=== PATIENT | female | born 1955 | race Caucasian/White ===

== ENCOUNTER → 2019-03-01 | Outpatient (CLI) | payer MEDICARE, OTHER ==
[~2019-03-01] MED LIST: /LOR25TA PO; ACET500C OR; ACET65TA OR; ALEV220C2 PO; ANEX75TA PO; ATARAX OR; AUGM875T28 PO; BACL10TA2 OR; BENA25TA4 PO; BENEDRYL PO; BUSP10TA2 OR; CALC600T10 PO; CALCCHW12 OR; CELE1CAP4 PO; CELE20TA OR; CIPR500T19; CIPR500T4 OR; COLA100C2 OR; COLA100C2 PO; COLA100C5 PO; CRAN500C2 PO; CYMB1CAP5; CYMB1CAP5 OR; CYMB1CAP5 PO; CYMB60CA3 PO; D 202000 PO; DARV100T; DRISDOL OR; EFFE150C2 PO; EFFE75CA2 PO; EUCECRE2 EX; EXTR500C4 PO; FLEX10TA2 PO; FLEXERIL; FLEXERIL PO; FURO20TA2; FURO40TA2 PO; HYDR-4274 PO; HYDR10EL PO; HYDR50TA70 PO; HYDR50TA8 OR; HYDROCORTISONE0.5 % EX; HYOMAX OR; HYOS0.378 OR; IBUP400T OR; K-TA10TA; KEFL500C17 PO; KEPP250T PO; KEPP500T4 PO; LASI40TA PO; LEVETIRACETAM PO; LEVO100T4 PO; LEVO25TA2 PO; LORA1TAB12 PO; LORA2TAB; LYRI75CA OR; MAGN500T5 PO; MELA10CA PO; MELATONIN PO; MELO7.5T3 PO; METHAZOLAMIDE PO; MULTCAP PO; MULTIVIT PO; MYSO50TA; MYSO50TA OR; MYSO50TA PO; NAPR500T OR; NAPR500T PO; NEUR100C OR; NEUR100C PO; NEXI1CAP3 PO; NEXI20CA OR; NEXI40CA PO; NEXI40GR PO; NORCOTAB PO; NORT10CA2 OR; NUCYNTA OR; ONDA-1 OR; OXYB5TAB4; PAME50CA PO; POTA10CA2; POTA20TA2 PO; POTA20TA4 PO; PREG50CA OR; PRIM250T8 PO; PRIM50TA4 OR; PRIMPOW10 PO; PROBCAP4 PO; PROP60TA OR; RAPAFLO OR; RAPAFLO PO; REQU1TAB16 OR; RISP4TAB33 PO; SERO1TAB3 OR; SYNT137T7 PO; THERGRAN PO; THERTAB30 PO; TIZA2TAB OR; TIZA4CAP PO; TOPI100T; TOPI50TA; TRAZ50TA2 PO; TYLE1TAB5 PO; TYLE325T5 PO; UNISOM PO; VENL150T40 PO; VICO5TAB OR; VICOBULK GT; VIT D 2000 OR; VIT D 2000 PO; VIT250TA PO; VITA400C; VITA500T OR; VITACAP31 PO; VITAD1000T PO; VITAMIN B 12 PO; VITAMIN B COMPLE1 OR; VITAMIN B2 PO; VITATAB11 PO; VITATAB54 PO; VITMTA PO; ZOLPIDEM TART OR; [UNRECOGNIZED DRUG - OTHER]; [UNRECOGNIZED DRUG - OTHER] PO; amoxicillin PO; effexor PO; melatonin PO; oxygen INH; primidone PO; rozerem PO; stool softner PO; vitamin B PO
[2019-03-01 10:05] LABS: HEMATOCRIT 36.8 % (36.0-47.0); HEMOGLOBIN 11.8 g/dl (12.0-15.5); MEAN CORPUSCULAR HEMOGLOBIN 28.6 pg (27.0-33.0); MEAN CORPUSCULAR HGB CONC 32.1 g/dl (32.0-36.5); MEAN CORPUSCULAR VOLUME 89.3 fl (80.0-96.0); PLATELET COUNT, AUTOMATED 336 10^3/uL (150-450); RED BLOOD COUNT 4.12 10^6/uL (4.00-5.40); WHITE BLOOD COUNT 6.1 10^3/uL (4.0-10.0)
[2019-03-01 10:47] LABS: HEMOGLOBIN A1c 5.6 %
[2019-03-01 10:48] LABS: ALBUMIN 3.4 GM/DL (3.2-5.2); ALT/SGPT 39 U/L (12-78); BILIRUBIN,TOTAL 0.4 MG/DL (0.2-1.0); BLOOD UREA NITROGEN 18 MG/DL (7-18); CALCIUM LEVEL 8.5 MG/DL (8.8-10.2); CARBON DIOXIDE LEVEL 33 MEQ/L (21-32); CHLORIDE LEVEL 106 MEQ/L (98-107); CHOLESTEROL LEVEL 259 MG/DL (<200); CHOLESTEROL RISK RATIO 3.083 (<5); CREATININE FOR GFR 0.71 MG/DL (0.55-1.30); GLOMERULAR FILTRATION RATE > 60.0 (>45); GLUCOSE, FASTING 86 MG/DL (70-100); HDL CHOLESTEROL 84 MG/DL (>40); LDL CHOLESTEROL 155 MG/DL (<100); NON-HDL-C 175 MG/DL; POTASSIUM SERUM 3.7 MEQ/L (3.5-5.1); SODIUM LEVEL 143 MEQ/L (136-145); TOTAL PROTEIN 6.7 GM/DL (6.4-8.2); TRIGLYCERIDES LEVEL 101 MG/DL (<150)
== END ==
LOC: M LAB 09:31
PROVIDERS: ATTEND Internal Medicine
DX: E78.5 Hyperlipidemia, unspecified (principal); E03.9 Hypothyroidism, unspecified; R73.01 Impaired fasting glucose

== ENCOUNTER → 2019-03-25 | Outpatient (CLI) | payer MEDICARE, OTHER ==
--- NOTE | 2019-03-25 09:45 | REP ---
CT LUMBAR SPINE WITHOUT CONTRAST: HISTORY: Radiculopathy. COMPARISON: 07/27/2012. There is no disc bulge or herniation at the L1-2 and L2-3 levels. The nerves exit the neural foramina without compression. A diffuse disc bulge is present at the L3-4 level. There is minimal compression of the thecal sac. The L3 nerves exit the neural foramina without compression. A diffuse disc bulge is present at the L4-5 level. There is minimal compression of the thecal sac. There is hypertrophy of the posterior articulating facets. The L4 nerves exit the neural foramina without compression. A diffuse disc bulge is present at the L5-S1 level. There is minimal compression of the thecal sac. There is hypertrophy of the posterior articulating facets. The L5 nerves exit the neural foramina without compression. The L4-5 and L5-S1 intervertebral discs are decreased in height consistent with disc degeneration. There is no subluxation. Metal pins traverse the left sacroiliac joint. IMPRESSION: Diffuse disc bulges at the L3-4 through L5-S1 levels with minimal thecal sac compression. There is no significant change compared to the previous study. Electronically Signed by Dmitry Matias MD 03/25/2019 09:54 A
== END ==
LOC: M RAD 08:57
PROVIDERS: ATTEND Nurse Practitioner Family
DX: M51.36 Other intervertebral disc degeneration, lumbar region (principal); M51.37 Other intervertebral disc degeneration, lumbosacral region; M54.16 Radiculopathy, lumbar region; Z12.31 Encounter for screening mammogram for malignant neoplasm of breast; Z80.41 Family history of malignant neoplasm of ovary; Z80.3 Family history of malignant neoplasm of breast; Z80.0 Family history of malignant neoplasm of digestive organs; Z98.890 Other specified postprocedural states

== ENCOUNTER → 2019-03-25 | Outpatient (CLI) | payer MEDICARE, OTHER ==
--- NOTE | 2019-03-25 11:06 | REPMRS ---
Patient History The patient states she has not had a clinical breast exam in over a year. Family history of ovarian cancer in mother, breast cancer in maternal aunt, breast cancer in sister, colorectal cancer in father. Bilateral breast reduction 2006 3D TOMOSYNTHESIS WAS PERFORMED. Digital Mammo Screening Bilat: March 25, 2019 - Exam #: [id number] Bilateral CC and MLO view(s) were taken. Technologist: Pauly Dye, Technologist Prior study comparison: April 10, 2016, bilateral digital mammo screening bilat performed at [facility]. April 17, 2012, bilateral digital mammo screening bilat performed at [facility]. FINDINGS: There are scattered fibroglandular densities. There has been no change in the appearance of the mammogram from the prior studies. There is a mild amount of residual fibroglandular tissue which is fairly symmetric. There is no interval development of dominant mass, architectural distortion, or clustered microcalcification suggestive of malignancy. Assessment: BI-RADS/ACR category 1 mammogram. Negative Mammogram. Recommendation Routine screening mammogram in 1 year (for women over age 40). This mammogram was interpreted with the aid of an FDA-approved computer-aided dectection system. Electronically Signed By: Dario Ward MD 03/25/19 [id number]
== END ==
LOC: M RAD 08:53
PROVIDERS: ATTEND Internal Medicine
DX: Z12.31 Encounter for screening mammogram for malignant neoplasm of breast (principal); Z80.41 Family history of malignant neoplasm of ovary; Z80.3 Family history of malignant neoplasm of breast; Z80.0 Family history of malignant neoplasm of digestive organs; Z98.890 Other specified postprocedural states

== ENCOUNTER 2022-01-29 16:07 | Inpatient (IN) | payer MEDICARE, OTHER ==
[~2022-01-29] VITALS: Ht 154.9 cm; Wt 93.2 kg
[~2022-01-29 16:07] MED LIST changes: +CYMB60CA4 PO; -LORA1TAB12 PO; +LORA1TAB4 PO
[2022-01-29] MEDS ORDERED: fentaNYL 100 MCG/2 ML INJECTION IV ONE ×2 (17:25→21:50)
[2022-01-29 17:49] LABS: BASO # 0.1 10^3/uL (0.0-0.2); BASO % 0.8 % (0.0-1.0); HEMATOCRIT 34.3 % (36.0-47.0); HEMOGLOBIN 10.8 g/dl (12.0-15.5); LYMPH # 2.8 10^3/uL (1.5-5.0); LYMPH % 30.8 % (24.0-44.0); MEAN CORPUSCULAR HEMOGLOBIN 29.2 pg (27.0-33.0); MEAN CORPUSCULAR HGB CONC 31.5 g/dl (32.0-36.5); MEAN CORPUSCULAR VOLUME 92.7 fl (80.0-96.0); MONO # 0.7 10^3/uL (0.0-0.8); MONO % 8.3 % (2.0-8.0); NEUTROPHILS # 5.4 10^3/uL (1.5-8.5); PLATELET COUNT, AUTOMATED 252 10^3/uL (150-450)
[2022-01-29 18:13] LABS: BLOOD UREA NITROGEN 16 MG/DL (7-18); CALCIUM LEVEL 8.5 MG/DL (8.8-10.2); CARBON DIOXIDE LEVEL 33 MEQ/L (21-32); CHLORIDE LEVEL 104 MEQ/L (98-107); CREATININE FOR GFR 0.75 MG/DL (0.55-1.30); GLOMERULAR FILTRATION RATE > 60.0 (>45); GLUCOSE, FASTING 110 MG/DL (70-100); SODIUM LEVEL 141 MEQ/L (136-145)
[2022-01-29 18:17] LABS: CK-MB VALUE MASS < 1.0 NG/ML (<3.6); CPK CREATINE PHOSPHOKINASE 36 U/L (26-192); MB/CK RELATIVE INDEX 2.78 (< OR =4)
[2022-01-29] MEDS: NS 1,000 ML IV SCH (23:45)
[2022-01-30] MEDS ORDERED: ALBUTEROL 90 MCG/ACT 8GM HFA INHALER INH PRN (00:30)
[2022-01-30] MEDS ORDERED: OMEP40CA5 PO (00:48)
[2022-01-30] MEDS ORDERED: CYAN100049 PO (00:48)
[2022-01-30] MEDS ORDERED: ATOR40TA75 PO (00:48)
[2022-01-30] MEDS ORDERED: TRAZ-257 PO (00:48)
[2022-01-30] MEDS ORDERED: LORA-674 PO (00:48)
[2022-01-30] MEDS ORDERED: SYNT150T PO (00:48)
[2022-01-30] MEDS ORDERED: ACET25TA12 PO (00:48)
[2022-01-30] MEDS ORDERED: HYDR50TA30 PO (00:48)
[2022-01-30] MEDS ORDERED: METH-1165 PO (00:48)
[2022-01-30] MEDS ORDERED: POTA1TAB14 PO (00:48)
[2022-01-30] MEDS ORDERED: VITMTA PO (00:48)
[2022-01-30] MEDS ORDERED: BUSP5TA PO (00:48)
[2022-01-30] MEDS ORDERED: HOME MED LIST COMPLETE! XX SCH (00:50)
[2022-01-30] MEDS: NORCO, ANEXSIA 5/325MG TABLET (HYDROcodone/ACETAMINOPHEN) PO PRN ×4 (01:29→21:06)
[2022-01-30] MEDS: NS 1,000 ML IV SCH (04:56)
[2022-01-30] MEDS: LEVOTHYROXINE 150MCG TABLET (0.15MG) PO SCH (05:21)
[2022-01-30] MEDS: FUROSEMIDE 40 MG TAB PO SCH ×2 (08:00→11:37)
[2022-01-30] MEDS: hydrOXYzine 50 MG TAB PO SCH ×3 (08:12→21:05)
[2022-01-30] MEDS: busPIRone 5 MG TAB PO SCH ×3 (08:12→21:05)
[2022-01-30] MEDS: DULoxetine 30MG CAPSULE (CYMBALTA) PO SCH ×2 (08:12→21:05)
[2022-01-30] MEDS: APIXABAN 5 MG TAB (ELIQUIS) PO SCH ×2 (08:12→21:05)
[2022-01-30] MEDS: POTASSIUM CHLORIDE 10MEQ SR TABLET PO SCH ×2 (08:12→11:37)
[2022-01-30] MEDS: CYANOCOBALAMIN 500 MCG TAB PO SCH (08:13)
[2022-01-30] MEDS: MULTIVITAMINS/MINERALS THERAP 1 TAB PO SCH (08:13)
[2022-01-30 08:37] VITALS: BP 133/72
[2022-01-30] MEDS: IPRATROPIUM HFA INHALER 12.9 GRAMS (ATROVENT HFA) INH SCH ×4 (08:47→19:38)
[2022-01-30] MEDS: methocarbamoL 750 MG TAB PO SCH ×3 (08:53→21:05)
[2022-01-30 08:54] LABS: THYROID STIMULATING HORMONE 2.59 uIU/ML (0.358-3.740)
[2022-01-30] MEDS ORDERED: ENOXAPARIN 40MG/0.4ML SYRINGE (J1650 PER 10MG) SC SCH (09:00)
[2022-01-30] MEDS: PRIMIDONE 250 MG TAB PO SCH ×3 (11:38→21:05)
[2022-01-30] MEDS: MORPHINE 2 MG/ML 1ML VIAL IV PRN (11:38)
[2022-01-30 14:00] VITALS: BP 124/58
[2022-01-30] MEDS: ACETAMINOPHEN TAB 650MG DOSE (2X325MG) PO PRN (15:08)
[2022-01-30] MEDS ORDERED: LORazepam 1 MG TAB PO PRN (16:30)
[2022-01-30] MEDS: MICONAZOLE-7 VAGINAL 2% CREAM 47.7GM PV SCH (18:31)
[2022-01-30 20:00] VITALS: BP 147/67
[2022-01-30] MEDS: OMEPRAZOLE 20MG CAP PO SCH (21:05)
[2022-01-30] MEDS: traZODone 100 MG TAB PO SCH (21:05)
[2022-01-30] MEDS: LORATADINE 10 MG TAB PO SCH (21:05)
[2022-01-30] MEDS: ATORVASTATIN 20 MG TAB PO SCH (21:05)
[2022-01-31 04:00] VITALS: BP 145/63
[2022-01-31] MEDS: LEVOTHYROXINE 150MCG TABLET (0.15MG) PO SCH (04:47)
[2022-01-31] MEDS: NORCO, ANEXSIA 5/325MG TABLET (HYDROcodone/ACETAMINOPHEN) PO PRN ×3 (04:47→19:56)
[2022-01-31] MEDS: ONDANSETRON 4MG/2ML VIAL IV PRN ×2 (05:58→10:14)
[2022-01-31] MEDS: MORPHINE 2 MG/ML 1ML VIAL IV PRN ×2 (05:58→10:15)
[2022-01-31] MEDS: methocarbamoL 750 MG TAB PO SCH ×3 (07:49→19:54)
[2022-01-31] MEDS: CYANOCOBALAMIN 500 MCG TAB PO SCH (07:49)
[2022-01-31] MEDS: hydrOXYzine 50 MG TAB PO SCH ×3 (07:50→19:54)
[2022-01-31] MEDS: FUROSEMIDE 40 MG TAB PO SCH ×2 (07:50→12:10)
[2022-01-31] MEDS: MULTIVITAMINS/MINERALS THERAP 1 TAB PO SCH (07:50)
[2022-01-31] MEDS: APIXABAN 5 MG TAB (ELIQUIS) PO SCH ×2 (07:50→19:53)
[2022-01-31] MEDS: POTASSIUM CHLORIDE 10MEQ SR TABLET PO SCH ×2 (07:50→12:10)
[2022-01-31] MEDS: DULoxetine 30MG CAPSULE (CYMBALTA) PO SCH ×2 (07:50→19:55)
[2022-01-31] MEDS: PRIMIDONE 250 MG TAB PO SCH ×3 (07:51→19:53)
[2022-01-31] MEDS: busPIRone 5 MG TAB PO SCH ×3 (07:51→19:53)
[2022-01-31] MEDS: IPRATROPIUM HFA INHALER 12.9 GRAMS (ATROVENT HFA) INH SCH ×4 (08:07→19:52)
[2022-01-31] MEDS ORDERED: PREVNAR 13 VACCINE SYRINGE IM ONE (09:00)
[2022-01-31] MEDS: MIRALAX *UNIT DOSE* 17GM PACKET PO SCH (12:09)
[2022-01-31] MEDS: DOCUSATE SODIUM 100MG CAPSULE PO SCH ×2 (12:10→19:54)
[2022-01-31 14:00] VITALS: BP 133/61
[2022-01-31 19:39] VITALS: BP 110/56
[2022-01-31] MEDS: LORATADINE 10 MG TAB PO SCH (19:54)
[2022-01-31] MEDS: traZODone 100 MG TAB PO SCH (19:54)
[2022-01-31] MEDS: OMEPRAZOLE 20MG CAP PO SCH (19:54)
[2022-01-31] MEDS: MICONAZOLE-7 VAGINAL 2% CREAM 47.7GM PV SCH (19:55)
[2022-01-31] MEDS: ATORVASTATIN 20 MG TAB PO SCH (19:55)
[2022-02-01 04:00] VITALS: BP 122/60
[2022-02-01] MEDS: LEVOTHYROXINE 150MCG TABLET (0.15MG) PO SCH (05:35)
[2022-02-01 07:42] LABS: HEMATOCRIT 30.6 % (36.0-47.0); HEMOGLOBIN 9.6 g/dl (12.0-15.5); MEAN CORPUSCULAR HGB CONC 31.4 g/dl (32.0-36.5); MEAN CORPUSCULAR VOLUME 92.4 fl (80.0-96.0); PLATELET COUNT, AUTOMATED 221 10^3/uL (150-450); RED BLOOD COUNT 3.31 10^6/uL (4.00-5.40)
[2022-02-01 08:02] LABS: BLOOD UREA NITROGEN 14 MG/DL (7-18); CARBON DIOXIDE LEVEL 38 MEQ/L (21-32); CHLORIDE LEVEL 102 MEQ/L (98-107); CREATININE FOR GFR 0.58 MG/DL (0.55-1.30); GLOMERULAR FILTRATION RATE > 60.0 (>45); GLUCOSE, FASTING 101 MG/DL (70-100); MAGNESIUM LEVEL 1.9 MG/DL (1.8-2.4); POTASSIUM SERUM 3.6 MEQ/L (3.5-5.1); SODIUM LEVEL 140 MEQ/L (136-145)
[2022-02-01] MEDS: IPRATROPIUM HFA INHALER 12.9 GRAMS (ATROVENT HFA) INH SCH ×4 (08:29→19:58)
[2022-02-01] MEDS: FUROSEMIDE 40 MG TAB PO SCH ×2 (09:45→11:29)
[2022-02-01] MEDS: DOCUSATE SODIUM 100MG CAPSULE PO SCH ×2 (09:46→20:03)
[2022-02-01] MEDS: hydrOXYzine 50 MG TAB PO SCH ×3 (09:46→20:03)
[2022-02-01] MEDS: busPIRone 5 MG TAB PO SCH ×3 (09:46→20:03)
[2022-02-01] MEDS: DULoxetine 30MG CAPSULE (CYMBALTA) PO SCH ×2 (09:47→20:03)
[2022-02-01] MEDS: APIXABAN 5 MG TAB (ELIQUIS) PO SCH ×2 (09:47→20:03)
[2022-02-01] MEDS: MIRALAX *UNIT DOSE* 17GM PACKET PO SCH (09:48)
[2022-02-01] MEDS: PRIMIDONE 250 MG TAB PO SCH ×3 (09:48→20:03)
[2022-02-01] MEDS: POTASSIUM CHLORIDE 10MEQ SR TABLET PO SCH ×2 (09:48→11:29)
[2022-02-01] MEDS: methocarbamoL 750 MG TAB PO SCH ×3 (09:49→20:03)
[2022-02-01] MEDS: CYANOCOBALAMIN 500 MCG TAB PO SCH (09:49)
[2022-02-01] MEDS: MULTIVITAMINS/MINERALS THERAP 1 TAB PO SCH (09:49)
[2022-02-01] MEDS: NORCO, ANEXSIA 5/325MG TABLET (HYDROcodone/ACETAMINOPHEN) PO PRN (09:55)
[2022-02-01 10:00] VITALS: BP 114/59
[2022-02-01] MEDS: ACETAMINOPHEN TAB 650MG DOSE (2X325MG) PO PRN (15:13)
[2022-02-01] MEDS: MICONAZOLE-7 VAGINAL 2% CREAM 47.7GM PV SCH (20:03)
[2022-02-01] MEDS: traZODone 100 MG TAB PO SCH (20:03)
[2022-02-01] MEDS: ATORVASTATIN 20 MG TAB PO SCH (20:03)
[2022-02-01] MEDS: OMEPRAZOLE 20MG CAP PO SCH (20:03)
[2022-02-01] MEDS: LORATADINE 10 MG TAB PO SCH (20:03)
[2022-02-02] MEDS: LEVOTHYROXINE 150MCG TABLET (0.15MG) PO SCH (05:38)
[2022-02-02 06:00] VITALS: BP 133/61
[2022-02-02] MEDS: IPRATROPIUM HFA INHALER 12.9 GRAMS (ATROVENT HFA) INH SCH ×4 (07:52→18:25)
[2022-02-02] MEDS: CYANOCOBALAMIN 500 MCG TAB PO SCH (08:51)
[2022-02-02] MEDS: methocarbamoL 750 MG TAB PO SCH ×3 (08:51→20:43)
[2022-02-02] MEDS: hydrOXYzine 50 MG TAB PO SCH ×3 (08:51→20:42)
[2022-02-02] MEDS: DULoxetine 30MG CAPSULE (CYMBALTA) PO SCH ×2 (08:51→20:42)
[2022-02-02] MEDS: DOCUSATE SODIUM 100MG CAPSULE PO SCH ×2 (08:51→20:41)
[2022-02-02] MEDS: MULTIVITAMINS/MINERALS THERAP 1 TAB PO SCH (08:51)
[2022-02-02] MEDS: MIRALAX *UNIT DOSE* 17GM PACKET PO SCH (08:52)
[2022-02-02] MEDS: POTASSIUM CHLORIDE 10MEQ SR TABLET PO SCH ×2 (08:52→12:00)
[2022-02-02] MEDS: FUROSEMIDE 40 MG TAB PO SCH ×2 (08:52→12:00)
[2022-02-02] MEDS: busPIRone 5 MG TAB PO SCH ×3 (08:52→20:42)
[2022-02-02] MEDS: PRIMIDONE 250 MG TAB PO SCH ×3 (08:52→20:42)
[2022-02-02] MEDS: APIXABAN 5 MG TAB (ELIQUIS) PO SCH (08:52)
[2022-02-02] MEDS: NORCO, ANEXSIA 5/325MG TABLET (HYDROcodone/ACETAMINOPHEN) PO PRN (12:08)
[2022-02-02 14:00] VITALS: BP 116/53
[2022-02-02] MEDS: ATORVASTATIN 20 MG TAB PO SCH (20:41)
[2022-02-02] MEDS: OMEPRAZOLE 20MG CAP PO SCH (20:41)
[2022-02-02] MEDS: LORATADINE 10 MG TAB PO SCH (20:41)
[2022-02-02] MEDS: traZODone 100 MG TAB PO SCH (20:42)
[2022-02-02] MEDS: MICONAZOLE-7 VAGINAL 2% CREAM 47.7GM PV SCH (20:43)
[2022-02-02 22:00] VITALS: BP 135/63
[2022-02-03 04:00] VITALS: BP 135/65
[2022-02-03] MEDS: LEVOTHYROXINE 150MCG TABLET (0.15MG) PO SCH (06:11)
[2022-02-03 07:40] LABS: HEMATOCRIT 29.5 % (36.0-47.0); HEMOGLOBIN 9.5 g/dl (12.0-15.5); MEAN CORPUSCULAR HEMOGLOBIN 29.9 pg (27.0-33.0); MEAN CORPUSCULAR HGB CONC 32.2 g/dl (32.0-36.5); MEAN CORPUSCULAR VOLUME 92.8 fl (80.0-96.0); PLATELET COUNT, AUTOMATED 260 10^3/uL (150-450); RED BLOOD COUNT 3.18 10^6/uL (4.00-5.40); WHITE BLOOD COUNT 7.4 10^3/uL (4.0-10.0)
[2022-02-03 07:57] LABS: BLOOD UREA NITROGEN 14 MG/DL (7-18); CALCIUM LEVEL 8.1 MG/DL (8.8-10.2); CARBON DIOXIDE LEVEL 34 MEQ/L (21-32); CHLORIDE LEVEL 104 MEQ/L (98-107); CREATININE FOR GFR 0.52 MG/DL (0.55-1.30); GLOMERULAR FILTRATION RATE > 60.0 (>45); GLUCOSE, FASTING 99 MG/DL (70-100); MAGNESIUM LEVEL 2.1 MG/DL (1.8-2.4); POTASSIUM SERUM 3.3 MEQ/L (3.5-5.1); SODIUM LEVEL 144 MEQ/L (136-145)
[2022-02-03] MEDS: methocarbamoL 750 MG TAB PO SCH ×3 (08:04→21:01)
[2022-02-03] MEDS: MIRALAX *UNIT DOSE* 17GM PACKET PO SCH (08:04)
[2022-02-03] MEDS: POTASSIUM CHLORIDE 10MEQ SR TABLET PO SCH ×2 (08:05→12:46)
[2022-02-03] MEDS: busPIRone 5 MG TAB PO SCH ×3 (08:05→21:01)
[2022-02-03] MEDS: MULTIVITAMINS/MINERALS THERAP 1 TAB PO SCH (08:05)
[2022-02-03] MEDS: DOCUSATE SODIUM 100MG CAPSULE PO SCH ×2 (08:05→21:01)
[2022-02-03] MEDS: DULoxetine 30MG CAPSULE (CYMBALTA) PO SCH ×2 (08:05→21:01)
[2022-02-03] MEDS: CYANOCOBALAMIN 500 MCG TAB PO SCH (08:05)
[2022-02-03] MEDS: FUROSEMIDE 40 MG TAB PO SCH ×2 (08:05→12:46)
[2022-02-03] MEDS: PRIMIDONE 250 MG TAB PO SCH ×3 (08:05→21:01)
[2022-02-03] MEDS: hydrOXYzine 50 MG TAB PO SCH ×3 (08:06→21:01)
[2022-02-03] MEDS: IPRATROPIUM HFA INHALER 12.9 GRAMS (ATROVENT HFA) INH SCH ×4 (08:07→19:06)
[2022-02-03] MEDS ORDERED: POTASSIUM CHLORIDE 10MEQ SR TABLET PO ONE (09:25)
[2022-02-03] MEDS: NORCO, ANEXSIA 5/325MG TABLET (HYDROcodone/ACETAMINOPHEN) PO PRN ×2 (13:19→21:07)
[2022-02-03] MEDS: traZODone 100 MG TAB PO SCH (21:01)
[2022-02-03] MEDS: ATORVASTATIN 20 MG TAB PO SCH (21:01)
[2022-02-03] MEDS: OMEPRAZOLE 20MG CAP PO SCH (21:01)
[2022-02-03] MEDS: LORATADINE 10 MG TAB PO SCH (21:02)
[2022-02-03] MEDS: MICONAZOLE-7 VAGINAL 2% CREAM 47.7GM PV SCH (21:11)
[2022-02-04 04:00] VITALS: BP 124/58
[2022-02-04] MEDS: LEVOTHYROXINE 150MCG TABLET (0.15MG) PO SCH (06:05)
[2022-02-04 07:10] LABS: HEMATOCRIT 30.8 % (36.0-47.0); HEMOGLOBIN 9.9 g/dl (12.0-15.5); MEAN CORPUSCULAR HGB CONC 32.1 g/dl (32.0-36.5); MEAN CORPUSCULAR VOLUME 93.3 fl (80.0-96.0); PLATELET COUNT, AUTOMATED 274 10^3/uL (150-450); WHITE BLOOD COUNT 9.5 10^3/uL (4.0-10.0)
[2022-02-04 07:46] LABS: ALBUMIN 2.7 GM/DL (3.2-5.2); ALT/SGPT 88 U/L (12-78); BILIRUBIN,TOTAL 0.5 MG/DL (0.2-1.0); BLOOD UREA NITROGEN 12 MG/DL (7-18); CALCIUM LEVEL 8.2 MG/DL (8.8-10.2); CARBON DIOXIDE LEVEL 34 MEQ/L (21-32); CHLORIDE LEVEL 103 MEQ/L (98-107); CREATININE FOR GFR 0.51 MG/DL (0.55-1.30); GLOMERULAR FILTRATION RATE > 60.0 (>45); GLUCOSE, FASTING 103 MG/DL (70-100); MAGNESIUM LEVEL 1.9 MG/DL (1.8-2.4); POTASSIUM SERUM 3.3 MEQ/L (3.5-5.1); SODIUM LEVEL 142 MEQ/L (136-145); TOTAL PROTEIN 5.8 GM/DL (6.4-8.2)
[2022-02-04] MEDS: IPRATROPIUM HFA INHALER 12.9 GRAMS (ATROVENT HFA) INH SCH ×3 (08:17→14:27)
[2022-02-04] MEDS: MIRALAX *UNIT DOSE* 17GM PACKET PO SCH (09:00)
[2022-02-04] MEDS: DOCUSATE SODIUM 100MG CAPSULE PO SCH ×2 (09:00→23:43)
[2022-02-04] MEDS: POTASSIUM CHLORIDE 10MEQ SR TABLET PO SCH ×2 (09:30→12:58)
[2022-02-04] MEDS: PRIMIDONE 250 MG TAB PO SCH (09:30)
[2022-02-04] MEDS: busPIRone 5 MG TAB PO SCH ×3 (09:30→23:43)
[2022-02-04] MEDS: CYANOCOBALAMIN 500 MCG TAB PO SCH (09:31)
[2022-02-04] MEDS: methocarbamoL 750 MG TAB PO SCH (09:31)
[2022-02-04] MEDS: DULoxetine 30MG CAPSULE (CYMBALTA) PO SCH ×2 (09:31→23:44)
[2022-02-04] MEDS: MULTIVITAMINS/MINERALS THERAP 1 TAB PO SCH (09:31)
[2022-02-04] MEDS: hydrOXYzine 50 MG TAB PO SCH (09:32)
[2022-02-04] MEDS: ONDANSETRON 4MG/2ML VIAL IV PRN (10:30)
[2022-02-04 14:00] VITALS: BP 121/58
[2022-02-04] MEDS ORDERED: propofoL 200 MG/20 ML VIAL As Ordered ONE (18:10)
[2022-02-04] MEDS ORDERED: ONDANSETRON 4MG/2ML VIAL As Ordered ONE (18:10)
[2022-02-04] MEDS ORDERED: MIDAZOLAM INJ 2MG/2ML VIAL (J2250 PER 1MG) As Ordered ONE (18:10)
[2022-02-04] MEDS ORDERED: fentaNYL 100 MCG/2 ML INJECTION As Ordered ONE ×3 (18:10→22:23)
[2022-02-04] MEDS ORDERED: LIDOCAINE 2% 100MG/5ML SDV (FOR ANES.) As Ordered ONE (18:10)
[2022-02-04] MEDS ORDERED: dexameTHASONE 4 MG/ML 1ML VIAL (J1100 PER 1MG) As Ordered ONE (18:10)
[2022-02-04] MEDS ORDERED: ROCURONIUM BROMIDE 50 MG/5 ML VIAL As Ordered ONE (18:25)
[2022-02-04] MEDS ORDERED: ceFAZolin 2 GM/D5W 50 ML IV BAG (J0690 PER 500MG) As Ordered ONE (18:30)
[2022-02-04] MEDS ORDERED: TRANEXAMIC ACID 100 MG/ML 10ML VIAL As Ordered ONE ×2 (18:30→20:34)
[2022-02-04] MEDS ORDERED: BUPIVACAINE LIPOSOME/PF 1.3% 20ML VIAL (13.3MG/ML)(EXPAREL) As Ordered ONE (19:24)
[2022-02-04] MEDS ORDERED: VANCOMYCIN 1000MG/20ML VIAL As Ordered ONE (19:24)
[2022-02-04] MEDS ORDERED: SUCCINYLCHOLINE 100 MG/5 ML SYRINGE (J0330) As Ordered ONE (19:36)
[2022-02-04] MEDS ORDERED: LABETALOL 100MG/20ML VIAL As Ordered ONE (20:25)
[2022-02-04] MEDS ORDERED: ACETAMINOPHEN 1000MG 100ML IV BTL (OFIRMEV) (J0131 PER 10MG) As Ordered ONE (20:28)
[2022-02-04] MEDS ORDERED: SUGAMMADEX SODIUM 500 MG/5 ML VIAL (BRIDION) As Ordered ONE (20:28)
[2022-02-04] MEDS ORDERED: hydrALAZINE 20MG/ML 1ML VIAL (J0360 PER 20MG) As Ordered ONE (20:35)
[2022-02-04] MEDS: fentaNYL 100 MCG/2 ML INJECTION IV PRN ×3 (22:24→22:44)
[2022-02-04] MEDS ORDERED: PERCOCET 5MG/325MG TAB PO PRN (22:50)
[2022-02-04] MEDS ORDERED: ONDANSETRON 4MG/2ML VIAL IV PRN (22:50)
[2022-02-04] MEDS ORDERED: LR 1,000 ML IV SCH ×2 (22:50→23:15)
[2022-02-04 23:15] VITALS: BP 146/76
[2022-02-04] MEDS: ATORVASTATIN 20 MG TAB PO SCH (23:43)
[2022-02-04] MEDS: LORATADINE 10 MG TAB PO SCH (23:43)
[2022-02-04] MEDS: traZODone 100 MG TAB PO SCH (23:43)
[2022-02-04] MEDS: MICONAZOLE-7 VAGINAL 2% CREAM 47.7GM PV SCH (23:44)
[2022-02-04] MEDS: OMEPRAZOLE 20MG CAP PO SCH (23:44)
[2022-02-04 23:45] VITALS: BP 143/62
[2022-02-05] VITALS (9 sets, daily range): BP systolic 112–140; BP diastolic 55–82
[2022-02-05] MEDS: IPRATROPIUM HFA INHALER 12.9 GRAMS (ATROVENT HFA) INH SCH ×5 (00:13→20:34)
[2022-02-05] MEDS: NORCO, ANEXSIA 5/325MG TABLET (HYDROcodone/ACETAMINOPHEN) PO PRN ×3 (03:48→17:31)
[2022-02-05] MEDS: LEVOTHYROXINE 150MCG TABLET (0.15MG) PO SCH ×2 (05:53→20:56)
[2022-02-05 07:18] LABS: HEMATOCRIT 28.4 % (36.0-47.0); HEMOGLOBIN 9.1 g/dl (12.0-15.5); MEAN CORPUSCULAR HEMOGLOBIN 29.4 pg (27.0-33.0); MEAN CORPUSCULAR VOLUME 91.9 fl (80.0-96.0); PLATELET COUNT, AUTOMATED 287 10^3/uL (150-450); RED BLOOD COUNT 3.09 10^6/uL (4.00-5.40); WHITE BLOOD COUNT 9.4 10^3/uL (4.0-10.0)
[2022-02-05 07:37] LABS: BLOOD UREA NITROGEN 13 MG/DL (7-18); CALCIUM LEVEL 8.3 MG/DL (8.8-10.2); CARBON DIOXIDE LEVEL 31 MEQ/L (21-32); CHLORIDE LEVEL 103 MEQ/L (98-107); CREATININE FOR GFR 0.57 MG/DL (0.55-1.30); GLOMERULAR FILTRATION RATE > 60.0 (>45); GLUCOSE, FASTING 119 MG/DL (70-100); MAGNESIUM LEVEL 1.8 MG/DL (1.8-2.4); POTASSIUM SERUM 3.5 MEQ/L (3.5-5.1); SODIUM LEVEL 139 MEQ/L (136-145)
[2022-02-05] MEDS: busPIRone 5 MG TAB PO SCH ×3 (08:31→20:56)
[2022-02-05] MEDS: hydrOXYzine 50 MG TAB PO SCH ×3 (08:31→20:59)
[2022-02-05] MEDS: MIRALAX *UNIT DOSE* 17GM PACKET PO SCH (08:31)
[2022-02-05] MEDS: POTASSIUM CHLORIDE 10MEQ SR TABLET PO SCH ×2 (08:32→12:10)
[2022-02-05] MEDS: MULTIVITAMINS/MINERALS THERAP 1 TAB PO SCH (08:32)
[2022-02-05] MEDS: methocarbamoL 750 MG TAB PO SCH ×3 (08:32→20:59)
[2022-02-05] MEDS: CYANOCOBALAMIN 500 MCG TAB PO SCH (08:32)
[2022-02-05] MEDS: DOCUSATE SODIUM 100MG CAPSULE PO SCH ×2 (08:32→20:59)
[2022-02-05] MEDS: FUROSEMIDE 40 MG TAB PO SCH ×3 (08:33→12:10)
[2022-02-05] MEDS: DULoxetine 30MG CAPSULE (CYMBALTA) PO SCH ×2 (08:33→20:59)
[2022-02-05] MEDS: PRIMIDONE 250 MG TAB PO SCH ×3 (11:05→20:59)
[2022-02-05] MEDS: PERCOCET 5MG/325MG TAB PO PRN ×2 (14:43→20:58)
[2022-02-05] MEDS: LORATADINE 10 MG TAB PO SCH (20:56)
[2022-02-05] MEDS: ATORVASTATIN 20 MG TAB PO SCH (20:56)
[2022-02-05] MEDS: traZODone 100 MG TAB PO SCH (20:58)
[2022-02-05] MEDS: OMEPRAZOLE 20MG CAP PO SCH (20:59)
[2022-02-05] MEDS: MICONAZOLE-7 VAGINAL 2% CREAM 47.7GM PV SCH (21:57)
[2022-02-06 04:00] VITALS: BP 152/63
[2022-02-06] MEDS: NORCO, ANEXSIA 5/325MG TABLET (HYDROcodone/ACETAMINOPHEN) PO PRN ×2 (04:35→08:54)
[2022-02-06] MEDS: LEVOTHYROXINE 150MCG TABLET (0.15MG) PO SCH (05:33)
[2022-02-06] MEDS: IPRATROPIUM HFA INHALER 12.9 GRAMS (ATROVENT HFA) INH SCH ×2 (07:14→11:32)
[2022-02-06] MEDS: methocarbamoL 750 MG TAB PO SCH (08:51)
[2022-02-06] MEDS: FUROSEMIDE 40 MG TAB PO SCH ×2 (08:52→11:55)
[2022-02-06] MEDS: hydrOXYzine 50 MG TAB PO SCH (08:52)
[2022-02-06] MEDS: DOCUSATE SODIUM 100MG CAPSULE PO SCH (08:52)
[2022-02-06] MEDS: DULoxetine 30MG CAPSULE (CYMBALTA) PO SCH (08:52)
[2022-02-06] MEDS: CYANOCOBALAMIN 500 MCG TAB PO SCH (08:52)
[2022-02-06] MEDS: MULTIVITAMINS/MINERALS THERAP 1 TAB PO SCH (08:52)
[2022-02-06] MEDS: PRIMIDONE 250 MG TAB PO SCH (08:52)
[2022-02-06] MEDS: POTASSIUM CHLORIDE 10MEQ SR TABLET PO SCH ×2 (08:53→11:55)
[2022-02-06] MEDS: MIRALAX *UNIT DOSE* 17GM PACKET PO SCH (08:54)
[2022-02-06] MEDS: busPIRone 5 MG TAB PO SCH (10:01)
[2022-02-06] MEDS: APIXABAN 5 MG TAB (ELIQUIS) PO SCH (10:01)
[2022-02-06 12:00] VITALS: BP 118/60
[2022-02-06] MEDS: PERCOCET 5MG/325MG TAB PO PRN (12:12)
[2022-02-06] MEDS ORDERED: MIRA1POW3 PO (12:15)
[2022-02-06] MEDS ORDERED: COLA100C5 PO (12:15)
[2022-02-06] MEDS ORDERED: ELIQ5TAB PO (12:15)
[2022-02-06] MEDS ORDERED: PERCOCET PO (12:17)
== END 2022-02-06 14:42 | DRG 492 ==
LOC: EDBD 16:07 → M ED 16:07 → M ED INP 16:08 → OBSVTOIN 01-30 02:34 → ENRESERV 01-30 07:52 → M 4MAIN 01-30 08:37
PROVIDERS: ADMIT Internal Medicine; ATTEND Internal Medicine Nephrology
PROC: 0QSG04Z Reposition Right Tibia with Internal Fixation Device, Open Approach (ICD-10-PCS; 2022-02-04)
PROC: 0QSJ04Z Reposition Right Fibula with Internal Fixation Device, Open Approach (ICD-10-PCS; principal; 2022-02-04 18:00)
DX: S82.851A Displaced trimalleolar fracture of right lower leg, initial encounter for closed fracture (principal); U07.1 COVID-19; J96.11 Chronic respiratory failure with hypoxia; Z99.81 Dependence on supplemental oxygen; E03.9 Hypothyroidism, unspecified; E78.5 Hyperlipidemia, unspecified; I48.91 Unspecified atrial fibrillation; G20 Parkinson's disease; R29.6 Repeated falls; I10 Essential (primary) hypertension; J44.9 Chronic obstructive pulmonary disease, unspecified; I27.20 Pulmonary hypertension, unspecified; G25.0 Essential tremor; E66.01 Morbid (severe) obesity due to excess calories; G47.33 Obstructive sleep apnea (adult) (pediatric); M19.90 Unspecified osteoarthritis, unspecified site; G43.909 Migraine, unspecified, not intractable, without status migrainosus; F41.9 Anxiety disorder, unspecified; F32.A Depression, unspecified; Z87.442 Personal history of urinary calculi; Z79.899 Other long term (current) drug therapy; Z91.018 Allergy to other foods; Z88.8 Allergy status to other drugs, medicaments and biological substances; Z91.040 Latex allergy status; K59.00 Constipation, unspecified; W18.30XA Fall on same level, unspecified, initial encounter; Y92.009 Unspecified place in unspecified non-institutional (private) residence as the place of occurrence of the external cause

== ENCOUNTER 2022-02-06 13:25 | Inpatient (IN) | payer MEDICARE, OTHER ==
[~2022-02-06] VITALS: Ht 154.9 cm; Wt 96.5 kg
[~2022-02-06 13:25] MED LIST changes: +ACET25TA12 PO; +ATOR40TA75 PO; +BUSP5TA PO; +CYAN100049 PO; +ELIQ5TAB PO; +HYDR50TA30 PO; +LORA-674 PO; +METH-1165 PO; +MIRA1POW3 PO; +OMEP40CA5 PO; +PERCOCET PO; +POTA1TAB14 PO; +SYNT150T PO; +TRAZ-257 PO
[2022-02-06] MEDS ORDERED: BISACODYL 10 MG SUPP PR PRN (15:10)
[2022-02-06] MEDS ORDERED: MIRALAX *UNIT DOSE* 17GM PACKET PO PRN (15:10)
[2022-02-06 16:00] VITALS: BP 138/70
[2022-02-06] MEDS: REMEDY PHYTOPLEX Z-GUARD PASTE 113GM TUBE (FROM STOREROOM PRODUCT) TOP SCH ×2 (16:00→20:15)
[2022-02-06] MEDS ORDERED: HOME MED LIST COMPLETE! XX SCH (16:05)
[2022-02-06] MEDS: hydrOXYzine 50 MG TAB PO SCH ×2 (17:35→20:12)
[2022-02-06] MEDS: busPIRone 5 MG TAB PO SCH ×2 (17:35→20:12)
[2022-02-06] MEDS: PRIMIDONE 250 MG TAB PO SCH ×2 (17:35→20:14)
[2022-02-06] MEDS: methocarbamoL 750 MG TAB PO SCH ×2 (17:35→20:12)
[2022-02-06] MEDS: ACETAMINOPHEN 500 MG TAB PO SCH ×2 (17:36→20:12)
[2022-02-06] MEDS: COMBIVENT RESPIMAT 100-20MCG INHALER 4GM INH SCH ×2 (17:39→20:20)
[2022-02-06] MEDS: DULoxetine 30MG CAPSULE (CYMBALTA) PO SCH (20:11)
[2022-02-06] MEDS: DOCUSATE SODIUM 100MG CAPSULE PO SCH (20:12)
[2022-02-06] MEDS: APIXABAN 5 MG TAB (ELIQUIS) PO SCH (20:12)
[2022-02-06] MEDS: OMEPRAZOLE 20MG CAP PO SCH (20:13)
[2022-02-06] MEDS: LORATADINE 10 MG TAB PO SCH (20:14)
[2022-02-06] MEDS: ATORVASTATIN 20 MG TAB PO SCH (20:14)
[2022-02-06] MEDS: SENNA 8.6 MG TAB (SENOKOT) PO SCH (20:15)
[2022-02-06 21:20] VITALS: BP 129/60
[2022-02-06 22:12] VITALS: BP 129/60
[2022-02-07] MEDS: LEVOTHYROXINE 150MCG TABLET (0.15MG) PO SCH (05:19)
[2022-02-07 06:14] VITALS: BP 143/67
[2022-02-07 06:54] LABS: BASO # 0.1 10^3/uL (0.0-0.2); BASO % 0.6 % (0.0-1.0); EOS # 0.3 10^3/uL (0.0-0.5); EOS % 2.9 % (0.0-3.0); HEMATOCRIT 28.6 % (36.0-47.0); HEMOGLOBIN 9.3 g/dl (12.0-15.5); LYMPH # 2.2 10^3/uL (1.5-5.0); LYMPH % 24.7 % (24.0-44.0); MEAN CORPUSCULAR HEMOGLOBIN 29.3 pg (27.0-33.0); MEAN CORPUSCULAR HGB CONC 32.5 g/dl (32.0-36.5); MEAN CORPUSCULAR VOLUME 90.2 fl (80.0-96.0); MONO % 10.9 % (2.0-8.0); NEUTROPHILS # 5.5 10^3/uL (1.5-8.5); NEUTROPHILS % 60.7 % (36.0-66.0); PLATELET COUNT, AUTOMATED 331 10^3/uL (150-450); RED BLOOD COUNT 3.17 10^6/uL (4.00-5.40)
[2022-02-07 07:18] LABS: ALBUMIN 2.6 GM/DL (3.2-5.2); ALT/SGPT 77 U/L (12-78); BILIRUBIN,TOTAL 0.5 MG/DL (0.2-1.0); BLOOD UREA NITROGEN 13 MG/DL (7-18); CALCIUM LEVEL 8.5 MG/DL (8.8-10.2); CARBON DIOXIDE LEVEL 33 MEQ/L (21-32); CHLORIDE LEVEL 102 MEQ/L (98-107); CREATININE FOR GFR 0.46 MG/DL (0.55-1.30); GLOMERULAR FILTRATION RATE > 60.0 (>45); GLUCOSE, FASTING 117 MG/DL (70-100); POTASSIUM SERUM 2.9 MEQ/L (3.5-5.1); SODIUM LEVEL 140 MEQ/L (136-145); TOTAL PROTEIN 6.4 GM/DL (6.4-8.2)
[2022-02-07] MEDS: COMBIVENT RESPIMAT 100-20MCG INHALER 4GM INH SCH ×4 (07:25→20:02)
[2022-02-07] MEDS: hydrOXYzine 50 MG TAB PO SCH ×3 (08:21→20:29)
[2022-02-07] MEDS: oxyCODONE 5MG TAB PO PRN ×3 (08:21→20:38)
[2022-02-07] MEDS: methocarbamoL 750 MG TAB PO SCH ×3 (08:22→20:29)
[2022-02-07] MEDS: DOCUSATE SODIUM 100MG CAPSULE PO SCH ×2 (08:22→20:29)
[2022-02-07] MEDS: busPIRone 5 MG TAB PO SCH ×3 (08:22→20:28)
[2022-02-07] MEDS: DULoxetine 30MG CAPSULE (CYMBALTA) PO SCH ×2 (08:22→20:29)
[2022-02-07] MEDS: PRIMIDONE 250 MG TAB PO SCH ×3 (08:22→20:29)
[2022-02-07] MEDS: POTASSIUM CHLORIDE 10MEQ SR TABLET PO SCH ×2 (08:22→12:56)
[2022-02-07] MEDS: ACETAMINOPHEN 500 MG TAB PO SCH ×3 (08:22→20:30)
[2022-02-07] MEDS: CYANOCOBALAMIN 500 MCG TAB PO SCH (08:22)
[2022-02-07] MEDS: APIXABAN 5 MG TAB (ELIQUIS) PO SCH ×2 (08:22→20:28)
[2022-02-07] MEDS: FUROSEMIDE 40 MG TAB PO SCH ×2 (08:27→12:56)
[2022-02-07] MEDS: MULTIVITAMINS/MINERALS THERAP 1 TAB PO SCH (08:28)
[2022-02-07] MEDS: REMEDY PHYTOPLEX Z-GUARD PASTE 113GM TUBE (FROM STOREROOM PRODUCT) TOP SCH ×3 (08:28→20:32)
[2022-02-07] MEDS ORDERED: POTASSIUM CHLORIDE 10MEQ SR TABLET PO ONE ×2 (10:20→19:30)
[2022-02-07 10:32] LABS: MAGNESIUM LEVEL 1.8 MG/DL (1.8-2.4)
[2022-02-07] MEDS ORDERED: POTASSIUM CHLORIDE 10MEQ SR TABLET PO SCH (12:00)
[2022-02-07 14:00] VITALS: BP 136/87
[2022-02-07 16:56] LABS: BLOOD UREA NITROGEN 14 MG/DL (7-18); CALCIUM LEVEL 8.3 MG/DL (8.8-10.2); CARBON DIOXIDE LEVEL 33 MEQ/L (21-32); CHLORIDE LEVEL 102 MEQ/L (98-107); CREATININE FOR GFR 0.52 MG/DL (0.55-1.30); GLOMERULAR FILTRATION RATE > 60.0 (>45); GLUCOSE, FASTING 133 MG/DL (70-100); POTASSIUM SERUM 3.4 MEQ/L (3.5-5.1); SODIUM LEVEL 142 MEQ/L (136-145)
[2022-02-07 19:38] VITALS: BP 119/70
[2022-02-07] MEDS: OMEPRAZOLE 20MG CAP PO SCH (20:29)
[2022-02-07] MEDS: SENNA 8.6 MG TAB (SENOKOT) PO SCH (20:29)
[2022-02-07] MEDS: LORATADINE 10 MG TAB PO SCH (20:29)
[2022-02-07] MEDS: ATORVASTATIN 20 MG TAB PO SCH (20:30)
[2022-02-07] MEDS: traZODone 100 MG TAB PO PRN (21:42)
[2022-02-08] MEDS: LEVOTHYROXINE 150MCG TABLET (0.15MG) PO SCH (05:33)
[2022-02-08 05:52] VITALS: BP 131/62
[2022-02-08] MEDS: COMBIVENT RESPIMAT 100-20MCG INHALER 4GM INH SCH ×4 (07:14→20:22)
[2022-02-08 08:46] LABS: BLOOD UREA NITROGEN 14 MG/DL (7-18); CALCIUM LEVEL 8.6 MG/DL (8.8-10.2); CARBON DIOXIDE LEVEL 31 MEQ/L (21-32); CHLORIDE LEVEL 102 MEQ/L (98-107); CREATININE FOR GFR 0.47 MG/DL (0.55-1.30); GLOMERULAR FILTRATION RATE > 60.0 (>45); GLUCOSE, FASTING 100 MG/DL (70-100); POTASSIUM SERUM 3.6 MEQ/L (3.5-5.1); SODIUM LEVEL 141 MEQ/L (136-145)
[2022-02-08] MEDS: hydrOXYzine 50 MG TAB PO SCH ×3 (08:52→21:30)
[2022-02-08] MEDS: PRIMIDONE 250 MG TAB PO SCH ×3 (08:52→21:30)
[2022-02-08] MEDS: methocarbamoL 750 MG TAB PO SCH ×3 (08:52→21:30)
[2022-02-08] MEDS: CYANOCOBALAMIN 500 MCG TAB PO SCH (08:53)
[2022-02-08] MEDS: MULTIVITAMINS/MINERALS THERAP 1 TAB PO SCH (08:53)
[2022-02-08] MEDS: APIXABAN 5 MG TAB (ELIQUIS) PO SCH ×2 (08:53→21:30)
[2022-02-08] MEDS: busPIRone 5 MG TAB PO SCH ×3 (08:53→21:30)
[2022-02-08] MEDS: DULoxetine 30MG CAPSULE (CYMBALTA) PO SCH ×2 (08:53→21:31)
[2022-02-08] MEDS: FUROSEMIDE 40 MG TAB PO SCH ×2 (08:53→12:25)
[2022-02-08] MEDS: POTASSIUM CHLORIDE 10MEQ SR TABLET PO SCH ×2 (08:54→12:25)
[2022-02-08] MEDS: DOCUSATE SODIUM 100MG CAPSULE PO SCH ×2 (08:54→21:00)
[2022-02-08] MEDS: ACETAMINOPHEN 500 MG TAB PO SCH ×3 (08:55→21:30)
[2022-02-08] MEDS: REMEDY PHYTOPLEX Z-GUARD PASTE 113GM TUBE (FROM STOREROOM PRODUCT) TOP SCH ×3 (09:00→21:32)
[2022-02-08 12:26] VITALS: BP 131/63
[2022-02-08 14:00] VITALS: BP 147/65
[2022-02-08 20:00] VITALS: BP 136/77
[2022-02-08] MEDS: SENNA 8.6 MG TAB (SENOKOT) PO SCH (21:00)
[2022-02-08] MEDS: LORATADINE 10 MG TAB PO SCH (21:30)
[2022-02-08] MEDS: ATORVASTATIN 20 MG TAB PO SCH (21:30)
[2022-02-08] MEDS: traZODone 100 MG TAB PO PRN (21:31)
[2022-02-08] MEDS: OMEPRAZOLE 20MG CAP PO SCH (21:31)
[2022-02-09] MEDS: LEVOTHYROXINE 150MCG TABLET (0.15MG) PO SCH (05:07)
[2022-02-09 06:00] VITALS: BP 132/74
[2022-02-09] MEDS: COMBIVENT RESPIMAT 100-20MCG INHALER 4GM INH SCH ×4 (07:53→20:00)
[2022-02-09] MEDS: DOCUSATE SODIUM 100MG CAPSULE PO SCH ×2 (09:22→20:31)
[2022-02-09] MEDS: MULTIVITAMINS/MINERALS THERAP 1 TAB PO SCH (09:22)
[2022-02-09] MEDS: DULoxetine 30MG CAPSULE (CYMBALTA) PO SCH ×2 (09:22→20:32)
[2022-02-09] MEDS: PRIMIDONE 250 MG TAB PO SCH ×3 (09:22→20:31)
[2022-02-09] MEDS: ACETAMINOPHEN 500 MG TAB PO SCH ×3 (09:22→20:32)
[2022-02-09] MEDS: busPIRone 5 MG TAB PO SCH ×3 (09:22→20:31)
[2022-02-09] MEDS: methocarbamoL 750 MG TAB PO SCH ×3 (09:22→20:32)
[2022-02-09] MEDS: hydrOXYzine 50 MG TAB PO SCH ×3 (09:23→20:32)
[2022-02-09] MEDS: CYANOCOBALAMIN 500 MCG TAB PO SCH (09:23)
[2022-02-09] MEDS: FUROSEMIDE 40 MG TAB PO SCH ×2 (09:23→12:18)
[2022-02-09] MEDS: APIXABAN 5 MG TAB (ELIQUIS) PO SCH ×2 (09:23→20:32)
[2022-02-09] MEDS: REMEDY PHYTOPLEX Z-GUARD PASTE 113GM TUBE (FROM STOREROOM PRODUCT) TOP SCH ×3 (09:24→20:33)
[2022-02-09] MEDS: POTASSIUM CHLORIDE 10MEQ SR TABLET PO SCH ×2 (09:24→12:18)
[2022-02-09 14:00] VITALS: BP 126/62
[2022-02-09 20:00] VITALS: BP 139/60
[2022-02-09] MEDS: SENNA 8.6 MG TAB (SENOKOT) PO SCH (20:31)
[2022-02-09] MEDS: OMEPRAZOLE 20MG CAP PO SCH (20:31)
[2022-02-09] MEDS: LORATADINE 10 MG TAB PO SCH (20:31)
[2022-02-09] MEDS: traZODone 100 MG TAB PO PRN (20:31)
[2022-02-09] MEDS: ATORVASTATIN 20 MG TAB PO SCH (20:32)
[2022-02-10] MEDS: LEVOTHYROXINE 150MCG TABLET (0.15MG) PO SCH (05:15)
[2022-02-10 06:00] VITALS: BP 153/70
[2022-02-10] MEDS: COMBIVENT RESPIMAT 100-20MCG INHALER 4GM INH SCH ×4 (07:48→19:43)
[2022-02-10] MEDS: DOCUSATE SODIUM 100MG CAPSULE PO SCH ×2 (09:00→21:06)
[2022-02-10] MEDS: busPIRone 5 MG TAB PO SCH ×3 (09:36→21:06)
[2022-02-10] MEDS: POTASSIUM CHLORIDE 10MEQ SR TABLET PO SCH ×2 (09:36→12:54)
[2022-02-10] MEDS: MULTIVITAMINS/MINERALS THERAP 1 TAB PO SCH (09:36)
[2022-02-10] MEDS: PRIMIDONE 250 MG TAB PO SCH ×3 (09:36→21:07)
[2022-02-10] MEDS: FUROSEMIDE 40 MG TAB PO SCH ×2 (09:36→12:54)
[2022-02-10] MEDS: CYANOCOBALAMIN 500 MCG TAB PO SCH (09:36)
[2022-02-10] MEDS: methocarbamoL 750 MG TAB PO SCH ×3 (09:37→21:05)
[2022-02-10] MEDS: DULoxetine 30MG CAPSULE (CYMBALTA) PO SCH ×2 (09:37→21:05)
[2022-02-10] MEDS: hydrOXYzine 50 MG TAB PO SCH ×3 (09:37→21:06)
[2022-02-10] MEDS: REMEDY PHYTOPLEX Z-GUARD PASTE 113GM TUBE (FROM STOREROOM PRODUCT) TOP SCH ×3 (09:38→21:10)
[2022-02-10] MEDS: ACETAMINOPHEN 500 MG TAB PO SCH ×3 (09:38→21:06)
[2022-02-10] MEDS: APIXABAN 5 MG TAB (ELIQUIS) PO SCH ×2 (09:39→21:06)
[2022-02-10 12:49] VITALS: BP 166/76
[2022-02-10] MEDS: oxyCODONE 5MG TAB PO PRN (12:54)
[2022-02-10 14:00] VITALS: BP_SYST 110; BP_SYST 120; BP_DIAS 64; BP_DIAS 78
[2022-02-10 20:00] VITALS: BP 147/76
[2022-02-10] MEDS: OMEPRAZOLE 20MG CAP PO SCH (21:05)
[2022-02-10] MEDS: LORATADINE 10 MG TAB PO SCH (21:06)
[2022-02-10] MEDS: ATORVASTATIN 20 MG TAB PO SCH (21:06)
[2022-02-10] MEDS: traZODone 100 MG TAB PO PRN (21:08)
[2022-02-10] MEDS: SENNA 8.6 MG TAB (SENOKOT) PO SCH (21:10)
[2022-02-11] MEDS: LEVOTHYROXINE 150MCG TABLET (0.15MG) PO SCH (05:22)
[2022-02-11] MEDS: oxyCODONE 5MG TAB PO PRN ×2 (05:55→15:11)
[2022-02-11 06:00] VITALS: BP 185/82
[2022-02-11 06:35] VITALS: BP 158/84
[2022-02-11] MEDS: COMBIVENT RESPIMAT 100-20MCG INHALER 4GM INH SCH ×4 (07:05→19:31)
[2022-02-11] MEDS: REMEDY PHYTOPLEX Z-GUARD PASTE 113GM TUBE (FROM STOREROOM PRODUCT) TOP SCH ×3 (09:00→21:00)
[2022-02-11] MEDS: MULTIVITAMINS/MINERALS THERAP 1 TAB PO SCH (09:29)
[2022-02-11] MEDS: hydrOXYzine 50 MG TAB PO SCH ×3 (09:29→21:50)
[2022-02-11] MEDS: FUROSEMIDE 40 MG TAB PO SCH ×2 (09:29→12:22)
[2022-02-11] MEDS: methocarbamoL 750 MG TAB PO SCH ×3 (09:30→21:52)
[2022-02-11] MEDS: APIXABAN 5 MG TAB (ELIQUIS) PO SCH ×2 (09:30→21:50)
[2022-02-11] MEDS: POTASSIUM CHLORIDE 10MEQ SR TABLET PO SCH ×2 (09:30→12:22)
[2022-02-11] MEDS: DULoxetine 30MG CAPSULE (CYMBALTA) PO SCH ×2 (09:30→21:50)
[2022-02-11] MEDS: DOCUSATE SODIUM 100MG CAPSULE PO SCH ×2 (09:30→21:50)
[2022-02-11] MEDS: CYANOCOBALAMIN 500 MCG TAB PO SCH (09:30)
[2022-02-11] MEDS: busPIRone 5 MG TAB PO SCH ×3 (09:30→21:51)
[2022-02-11] MEDS: ACETAMINOPHEN 500 MG TAB PO SCH ×3 (09:31→21:52)
[2022-02-11] MEDS: PRIMIDONE 250 MG TAB PO SCH ×3 (09:31→21:51)
[2022-02-11 09:37] LABS: BASO # 0.1 10^3/uL (0.0-0.2); EOS # 0.2 10^3/uL (0.0-0.5); EOS % 2.7 % (0.0-3.0); HEMATOCRIT 29.5 % (36.0-47.0); HEMOGLOBIN 9.3 g/dl (12.0-15.5); LYMPH # 2.5 10^3/uL (1.5-5.0); LYMPH % 35.7 % (24.0-44.0); MEAN CORPUSCULAR HEMOGLOBIN 29.6 pg (27.0-33.0); MEAN CORPUSCULAR HGB CONC 31.5 g/dl (32.0-36.5); MEAN CORPUSCULAR VOLUME 93.9 fl (80.0-96.0); MONO # 0.6 10^3/uL (0.0-0.8); MONO % 8.9 % (2.0-8.0); NEUTROPHILS # 3.6 10^3/uL (1.5-8.5); NEUTROPHILS % 51.3 % (36.0-66.0); PLATELET COUNT, AUTOMATED 393 10^3/uL (150-450); RED BLOOD COUNT 3.14 10^6/uL (4.00-5.40)
[2022-02-11 10:00] LABS: BLOOD UREA NITROGEN 16 MG/DL (7-18); CALCIUM LEVEL 8.5 MG/DL (8.8-10.2); CARBON DIOXIDE LEVEL 33 MEQ/L (21-32); CHLORIDE LEVEL 105 MEQ/L (98-107); CREATININE FOR GFR 0.57 MG/DL (0.55-1.30); GLOMERULAR FILTRATION RATE > 60.0 (>45); GLUCOSE, FASTING 120 MG/DL (70-100); POTASSIUM SERUM 3.5 MEQ/L (3.5-5.1); SODIUM LEVEL 142 MEQ/L (136-145)
[2022-02-11 14:00] VITALS: BP 144/67
[2022-02-11 20:09] VITALS: BP 155/65
[2022-02-11] MEDS: OMEPRAZOLE 20MG CAP PO SCH (21:50)
[2022-02-11] MEDS: SENNA 8.6 MG TAB (SENOKOT) PO SCH (21:50)
[2022-02-11] MEDS: LORATADINE 10 MG TAB PO SCH (21:51)
[2022-02-11] MEDS: traZODone 100 MG TAB PO PRN (21:51)
[2022-02-11] MEDS: ATORVASTATIN 20 MG TAB PO SCH (21:51)
[2022-02-12 05:11] VITALS: BP 130/62
[2022-02-12] MEDS: LEVOTHYROXINE 150MCG TABLET (0.15MG) PO SCH (05:51)
[2022-02-12] MEDS: COMBIVENT RESPIMAT 100-20MCG INHALER 4GM INH SCH ×4 (07:11→19:32)
[2022-02-12] MEDS: DOCUSATE SODIUM 100MG CAPSULE PO SCH ×2 (09:00→20:10)
[2022-02-12] MEDS: REMEDY PHYTOPLEX Z-GUARD PASTE 113GM TUBE (FROM STOREROOM PRODUCT) TOP SCH ×3 (09:00→20:11)
[2022-02-12] MEDS: ACETAMINOPHEN 500 MG TAB PO SCH ×3 (09:00→20:09)
[2022-02-12] MEDS: PRIMIDONE 250 MG TAB PO SCH ×3 (09:21→20:10)
[2022-02-12] MEDS: busPIRone 5 MG TAB PO SCH ×3 (09:21→20:08)
[2022-02-12] MEDS: APIXABAN 5 MG TAB (ELIQUIS) PO SCH ×2 (09:21→20:10)
[2022-02-12] MEDS: FUROSEMIDE 40 MG TAB PO SCH ×2 (09:22→12:01)
[2022-02-12] MEDS: methocarbamoL 750 MG TAB PO SCH ×3 (09:22→20:08)
[2022-02-12] MEDS: oxyCODONE 5MG TAB PO PRN (09:22)
[2022-02-12] MEDS: MULTIVITAMINS/MINERALS THERAP 1 TAB PO SCH (09:22)
[2022-02-12] MEDS: POTASSIUM CHLORIDE 10MEQ SR TABLET PO SCH ×2 (09:22→12:02)
[2022-02-12] MEDS: DULoxetine 30MG CAPSULE (CYMBALTA) PO SCH ×2 (09:22→20:10)
[2022-02-12] MEDS: CYANOCOBALAMIN 500 MCG TAB PO SCH (09:23)
[2022-02-12] MEDS: hydrOXYzine 50 MG TAB PO SCH ×3 (09:23→20:10)
[2022-02-12 10:10] LABS: BLOOD UREA NITROGEN 17 MG/DL (7-18); CARBON DIOXIDE LEVEL 30 MEQ/L (21-32); CHLORIDE LEVEL 105 MEQ/L (98-107); CREATININE FOR GFR 0.49 MG/DL (0.55-1.30); GLOMERULAR FILTRATION RATE > 60.0 (>45); GLUCOSE, FASTING 111 MG/DL (70-100); POTASSIUM SERUM 3.6 MEQ/L (3.5-5.1); SODIUM LEVEL 141 MEQ/L (136-145)
[2022-02-12 14:25] VITALS: BP 147/67
[2022-02-12 20:00] VITALS: BP 125/59
[2022-02-12] MEDS: OMEPRAZOLE 20MG CAP PO SCH (20:07)
[2022-02-12] MEDS: SENNA 8.6 MG TAB (SENOKOT) PO SCH (20:08)
[2022-02-12] MEDS: ATORVASTATIN 20 MG TAB PO SCH (20:08)
[2022-02-12] MEDS: LORATADINE 10 MG TAB PO SCH (20:10)
[2022-02-12] MEDS: traZODone 100 MG TAB PO PRN (20:18)
[2022-02-13] MEDS: oxyCODONE 5MG TAB PO PRN ×2 (02:07→12:03)
[2022-02-13] MEDS: LEVOTHYROXINE 150MCG TABLET (0.15MG) PO SCH (05:37)
[2022-02-13 06:00] VITALS: BP 168/96
[2022-02-13] MEDS: COMBIVENT RESPIMAT 100-20MCG INHALER 4GM INH SCH ×2 (07:11→12:00)
[2022-02-13] MEDS: FUROSEMIDE 40 MG TAB PO SCH ×2 (08:43→12:00)
[2022-02-13] MEDS: methocarbamoL 750 MG TAB PO SCH (08:43)
[2022-02-13] MEDS: PRIMIDONE 250 MG TAB PO SCH (08:43)
[2022-02-13] MEDS: POTASSIUM CHLORIDE 10MEQ SR TABLET PO SCH ×2 (08:44→12:00)
[2022-02-13] MEDS: APIXABAN 5 MG TAB (ELIQUIS) PO SCH (08:44)
[2022-02-13] MEDS: busPIRone 5 MG TAB PO SCH (08:45)
[2022-02-13] MEDS: CYANOCOBALAMIN 500 MCG TAB PO SCH (08:45)
[2022-02-13] MEDS: hydrOXYzine 50 MG TAB PO SCH (08:45)
[2022-02-13] MEDS: DULoxetine 30MG CAPSULE (CYMBALTA) PO SCH (08:45)
[2022-02-13] MEDS: MULTIVITAMINS/MINERALS THERAP 1 TAB PO SCH (08:45)
[2022-02-13] MEDS: ACETAMINOPHEN 500 MG TAB PO SCH (08:46)
[2022-02-13] MEDS: REMEDY PHYTOPLEX Z-GUARD PASTE 113GM TUBE (FROM STOREROOM PRODUCT) TOP SCH (08:46)
[2022-02-13] MEDS: DOCUSATE SODIUM 100MG CAPSULE PO SCH (08:47)
[2022-02-13] MEDS ORDERED: BUSP5TA PO (09:59)
[2022-02-13] MEDS ORDERED: METH-1165 PO (09:59)
[2022-02-13] MEDS ORDERED: OMEP40CA5 PO (09:59)
[2022-02-13] MEDS ORDERED: FURO40TA2 PO (09:59)
[2022-02-13] MEDS ORDERED: HYDR50TA30 PO (09:59)
[2022-02-13] MEDS ORDERED: POTA1TAB14 PO (09:59)
[2022-02-13] MEDS ORDERED: ELIQ5TAB PO (09:59)
[2022-02-13] MEDS ORDERED: ATOR40TA75 PO (09:59)
[2022-02-13] MEDS ORDERED: SYNT150T PO (09:59)
[2022-02-13] MEDS ORDERED: PRIM250T8 PO (09:59)
[2022-02-13] MEDS ORDERED: COMBAER6 INH (09:59)
[2022-02-13] MEDS ORDERED: CYMB60CA4 PO (09:59)
[2022-02-13] MEDS ORDERED: TRAZ-257 PO (09:59)
[2022-02-13] MEDS ORDERED: PERCOCET PO (10:00)
== END 2022-02-13 13:30 | disposition home or self-care (01) | DRG 560 ==
LOC: M PM&R 14:45
PROVIDERS: ADMIT Physical Medicine & Rehabilitation; ATTEND Physical Medicine & Rehabilitation
DX: S82.851D Displaced trimalleolar fracture of right lower leg, subsequent encounter for closed fracture with routine healing (principal); I50.32 Chronic diastolic (congestive) heart failure; Z68.41 Body mass index [BMI] 40.0-44.9, adult; J96.11 Chronic respiratory failure with hypoxia; J44.9 Chronic obstructive pulmonary disease, unspecified; J45.909 Unspecified asthma, uncomplicated; I11.0 Hypertensive heart disease with heart failure; E78.5 Hyperlipidemia, unspecified; E66.9 Obesity, unspecified; E03.9 Hypothyroidism, unspecified; F32.A Depression, unspecified; G25.0 Essential tremor; M48.02 Spinal stenosis, cervical region; M21.371 Foot drop, right foot; R39.11 Hesitancy of micturition; D64.9 Anemia, unspecified; Z98.84 Bariatric surgery status; Z90.49 Acquired absence of other specified parts of digestive tract; Z74.09 Other reduced mobility; Z74.1 Need for assistance with personal care; Z79.01 Long term (current) use of anticoagulants; Z79.899 Other long term (current) drug therapy; Z91.018 Allergy to other foods; Z91.040 Latex allergy status; Z88.5 Allergy status to narcotic agent; Z88.8 Allergy status to other drugs, medicaments and biological substances; I48.91 Unspecified atrial fibrillation; G43.909 Migraine, unspecified, not intractable, without status migrainosus

== ENCOUNTER → 2022-03-21 | Outpatient (CLI) | payer MEDICARE, OTHER ==
[~2022-03-21] MED LIST changes: +COMBAER6 INH
== END ==
LOC: M SOG 11:00
PROVIDERS: ATTEND Orthopaedic Surgery
DX: S82.301D Unspecified fracture of lower end of right tibia, subsequent encounter for closed fracture with routine healing (principal); Z47.89 Encounter for other orthopedic aftercare

== ENCOUNTER → 2022-05-23 | Outpatient (CLI) | payer MEDICARE, OTHER | LOC: M SOG 08:02 | PROVIDERS: ATTEND Orthopaedic Surgery | DX: S82.301D Unspecified fracture of lower end of right tibia, subsequent encounter for closed fracture with routine healing (principal); Z47.89 Encounter for other orthopedic aftercare ==

== ENCOUNTER → 2022-11-21 | Outpatient (CLI) | payer MEDICARE, OTHER | LOC: M SOG 08:02 | PROVIDERS: ATTEND Physician Assistant | DX: S82.301D Unspecified fracture of lower end of right tibia, subsequent encounter for closed fracture with routine healing (principal) ==

== ENCOUNTER 2025-01-24 10:31 | Emergency (ER) | payer MEDICARE, OTHER ==
[~2025-01-24] VITALS: Ht 154.9 cm; Wt 71.8 kg
[~2025-01-24 10:31] MED LIST changes: -EFFE150C2 PO; +EFFE150C3 PO; +LORA-1041 PO; -LORA-674 PO; +LORA1TAB23 PO; -LORA1TAB4 PO; -MIRA1POW3 PO; +MIRA33506 PO; +POTA-298 PO; -POTA1TAB14 PO
[2025-01-24 10:34] VITALS: TEMP 97.8
[2025-01-24] MEDS: ACETAMINOPHEN 500 MG TAB PO ONE (13:08)
[2025-01-24] MEDS ORDERED: PERCOCET 5MG/325MG TAB PO ONE (13:15)
[2025-01-24] MEDS: oxyCODONE 5MG TAB PO ONE (13:34)
[2025-01-24] MEDS ORDERED: ACET-683 PO (15:37)
[2025-01-24 15:57] VITALS: BP 157/69; O2SAT 97
== END 2025-01-24 15:58 | disposition home or self-care (01) ==
LOC: M ED 10:31
DX: M51.16 Intervertebral disc disorders with radiculopathy, lumbar region (principal); G43.909 Migraine, unspecified, not intractable, without status migrainosus; K21.9 Gastro-esophageal reflux disease without esophagitis; J44.9 Chronic obstructive pulmonary disease, unspecified; F32.A Depression, unspecified; F41.9 Anxiety disorder, unspecified; I10 Essential (primary) hypertension; E03.9 Hypothyroidism, unspecified; K44.9 Diaphragmatic hernia without obstruction or gangrene; K59.00 Constipation, unspecified; Z87.442 Personal history of urinary calculi; Z98.84 Bariatric surgery status; Z88.8 Allergy status to other drugs, medicaments and biological substances; Z88.5 Allergy status to narcotic agent; Z91.018 Allergy to other foods; Z91.048 Other nonmedicinal substance allergy status; Z91.040 Latex allergy status

== ENCOUNTER → 2025-01-31 | Outpatient (REF) | payer MEDICARE, OTHER ==
[~2025-01-31] MED LIST changes: +ACET-683 PO
[2025-01-31 15:52] LABS: APPEARANCE, URINE CLOUDY (CLEAR); BACTERIA, URINE AUTO 3+ (NEGATIVE); BILIRUBIN, URINE AUTO NEGATIVE (NEGATIVE); BLOOD, URINE BLOOD NEGATIVE (NEGATIVE); COLOR, URINE YELLOW (YELLOW); GLUCOSE, URINE (UA) AUTO NEGATIVE (NEGATIVE); KETONE, URINE AUTO NEGATIVE (NEGATIVE); LEUKOCYTE ESTERASE, URINE AUTO 3+ (NEGATIVE); MUCUS, URINE SMALL (NEGATIVE); NITRITE, URINE AUTO POSITIVE (NEGATIVE); PROTEIN, URINE AUTO NEGATIVE (NEGATIVE); RBC, URINE AUTO 3 /HPF (0-3); SPECIFIC GRAVITY URINE AUTO 1.009 (1.002-1.035); SQUAMOUS EPITHELIAL CELL UR AU 0 /HPF (0-6); UROBILINOGEN, URINE AUTO 0.2 mg/dL (0.0-2.0); WBC, URINE AUTO 141 /HPF (0-3)
== END ==
LOC: M SMT 14:58
PROVIDERS: ATTEND Specialist
DX: N32.81 Overactive bladder (principal); Z79.899 Other long term (current) drug therapy

== ENCOUNTER → 2025-02-03 | Outpatient (CLI) | payer MEDICARE, OTHER | LOC: M SOG 08:02 | PROVIDERS: ATTEND Physician Assistant | DX: S82.301D Unspecified fracture of lower end of right tibia, subsequent encounter for closed fracture with routine healing (principal) ==

== ENCOUNTER → 2025-02-18 | Outpatient (REF) | payer MEDICARE, OTHER | LOC: M LAB REF 12:51 | PROVIDERS: ATTEND Orthopaedic Surgery | DX: M17.11 Unilateral primary osteoarthritis, right knee (principal); M25.561 Pain in right knee ==

== ENCOUNTER → 2025-02-18 | Outpatient (CLI) | payer MEDICARE, OTHER | LOC: M SOG 07:51 | PROVIDERS: ATTEND Physician Assistant | DX: M17.0 Bilateral primary osteoarthritis of knee (principal); M25.561 Pain in right knee; M25.562 Pain in left knee ==

== ENCOUNTER → 2025-03-10 | Outpatient (CLI) | payer MEDICARE, OTHER | LOC: M WHC 09:22 | PROVIDERS: ATTEND Orthopaedic Surgery | DX: M17.11 Unilateral primary osteoarthritis, right knee (principal); M81.0 Age-related osteoporosis without current pathological fracture; M85.89 Other specified disorders of bone density and structure, multiple sites ==

== ENCOUNTER → 2025-05-04 | Outpatient (CLI) | payer MEDICARE, OTHER ==
[~2025-05-04] MED LIST changes: +ATOG30TA PO; +BUSP10TA PO; +OMEP40CA4 PO; +RIME75TA PO; +THERTAB52 PO; +VENTAER INH
== END ==
LOC: M RAD 07:02
PROVIDERS: ATTEND Orthopaedic Surgery
DX: M17.11 Unilateral primary osteoarthritis, right knee (principal)

== ENCOUNTER 2025-05-23 06:09 | Observation (INO) | payer MEDICARE, OTHER ==
[2025-05-23] VITALS (8 sets, daily range): BP systolic 112–123; BP diastolic 58–65; TEMP 97.1–97.9; O2SAT 94–98
[~2025-05-23] VITALS: Ht 154.9 cm; Wt 76.2 kg
[2025-05-23] MEDS ORDERED: MIDAZOLAM INJ 2 MG/2 ML VIAL As Ordered ONE (07:01)
[2025-05-23] MEDS ORDERED: ROCURONIUM BROMIDE 50MG/5ML VIAL As Ordered ONE (07:07)
[2025-05-23] MEDS ORDERED: LIDOCAINE 2% 100 MG/5 ML SDV (FOR ANES.) As Ordered ONE (07:07)
[2025-05-23] MEDS: LR 1,000 ML IV SCH (07:20)
[2025-05-23] MEDS: ceFAZolin SODIUM 2 GM in DEXTROSE 5% (D5W) ADV/MINI-BAG 50 ML IV ONE (07:30)
[2025-05-23] MEDS: TRANEXAMIC ACID 100 MG/ML 10ML VIAL As Ordered ONE (07:45)
[2025-05-23] MEDS ORDERED: PHENYLephrine 500MCG 5ML (100MCG/ML) SYRINGE As Ordered ONE (08:01)
[2025-05-23] MEDS ORDERED: PHENYLEPHRINE 10MG/ML 1ML VIAL As Ordered ONE (08:04)
[2025-05-23] MEDS ORDERED: ONDANSETRON 4MG 2ML VIAL As Ordered ONE (08:24)
[2025-05-23] MEDS ORDERED: KETOROLAC 30 MG/ML 1 ML VIAL As Ordered ONE (08:24)
[2025-05-23] MEDS ORDERED: dexAMETHasone 4 MG/ML 1 ML VIAL As Ordered ONE (08:24)
[2025-05-23] MEDS ORDERED: SUGAMMADEX SODIUM 500 MG/5 ML VIAL As Ordered ONE (08:51)
[2025-05-23] MEDS ORDERED: HYDROmorphone HCL 2 MG/ML 1 ML VIAL As Ordered ONE (09:01)
[2025-05-23] MEDS: REK 50ML SYRINGE IA ONE (09:10)
[2025-05-23] MEDS ORDERED: SENNA 8.6 MG TAB PO PRN (09:10)
[2025-05-23] MEDS ORDERED: ONDANSETRON 4MG 2ML VIAL IV PRN (09:10)
[2025-05-23] MEDS ORDERED: LR 1,000 ML IV SCH (09:15)
[2025-05-23] MEDS ORDERED: diphenhydrAMINE 50 MG/ML VIAL IV PRN (09:15)
[2025-05-23] MEDS: HYDROMORPHONE HCL 0.5 MG/0.5 ML SYRINGE IV PRN (11:26)
[2025-05-23] MEDS: ACETAMINOPHEN 325 MG TAB PO SCH (12:00)
[2025-05-23] MEDS ORDERED: MUPI2OI NARES (14:02)
[2025-05-23] MEDS ORDERED: ELIQ5TAB PO (14:02)
[2025-05-23] MEDS ORDERED: HYDR50TA70 PO (14:02)
[2025-05-23] MEDS ORDERED: DULO1CAP6 PO (14:02)
[2025-05-23] MEDS ORDERED: MIRA3350 PO (14:02)
[2025-05-23] MEDS ORDERED: POTA-151 PO ×2 (14:02)
[2025-05-23] MEDS ORDERED: TRAZ-189 PO (14:02)
[2025-05-23] MEDS ORDERED: DOCU100C16 PO (14:02)
[2025-05-23] MEDS ORDERED: ACET-897 PO (14:02)
[2025-05-23] MEDS ORDERED: LEVO125T4 PO (14:02)
[2025-05-23] MEDS ORDERED: HOME MED LIST COMPLETE! XX SCH (14:05)
[2025-05-23] MEDS: ceFAZolin SODIUM 2 GM in DEXTROSE 5% (D5W) ADV/MINI-BAG 50 ML IV SCH (15:30)
[2025-05-23] MEDS ORDERED: APIXABAN 5 MG TAB PO SCH (21:00)
[2025-05-23] MEDS: POTASSIUM CHLORIDE 10MEQ SR TABLET PO SCH (21:09)
[2025-05-23] MEDS: traZODone 100 MG TAB PO SCH (21:09)
[2025-05-23] MEDS: DOCUSATE SODIUM 100 MG CAPSULE PO SCH (21:10)
[2025-05-24 04:47] VITALS: BP 111/58; TEMP 97.3; O2SAT 96
[2025-05-24] MEDS: LEVOTHYROXINE 125 MCG TABLET (0.125 MG) PO SCH (05:57)
[2025-05-24 07:54] LABS: PLATELET COUNT, AUTOMATED 184 10^3/uL (150-450)
[2025-05-24 08:00] VITALS: BP 124/59; TEMP 97.5; O2SAT 95
[2025-05-24 08:20] LABS: ALT/SGPT 509.0 U/L (7.0-40); AST/SGOT 403.0 U/L (<34); CALCIUM LEVEL 8.4 MG/DL (8.3-10.6); CARBON DIOXIDE LEVEL 34.0 MMOL/L (20-31); CHLORIDE LEVEL 100.0 MMOL/L (98-107); CREATININE FOR GFR 0.99 MG/DL (0.55-1.30); GLOMERULAR FILTRATION RATE 61.7 (>45); POTASSIUM SERUM 4.4 MMOL/L (3.5-5.1); SODIUM LEVEL 140.0 MMOL/L (136-145)
[2025-05-24] MEDS: FERROUS SULFATE 325 MG TAB PO SCH (08:39)
[2025-05-24] MEDS: FUROSEMIDE 40 MG TAB PO SCH (08:39)
[2025-05-24] MEDS: ASCORBIC ACID 500 MG TAB PO SCH (08:47)
[2025-05-24] MEDS: APIXABAN 5 MG TAB PO SCH (08:49)
[2025-05-24] MEDS ORDERED: CEFA1TAB PO (09:53)
[2025-05-24] MEDS ORDERED: PERC5TAB12 PO (09:53)
[2025-05-24] MEDS ORDERED: FERR1TAB8 PO (09:53)
[2025-05-24 12:00] VITALS: BP 144/81; TEMP 97.5; O2SAT 93
== END 2025-05-24 12:16 | disposition home or self-care (01) ==
LOC: M SDC 06:09 → M RR INP 06:10 → M MS5PR 13:10
PROVIDERS: ADMIT Orthopaedic Surgery; ATTEND Orthopaedic Surgery
DX: M17.11 Unilateral primary osteoarthritis, right knee (principal); K21.9 Gastro-esophageal reflux disease without esophagitis; K44.9 Diaphragmatic hernia without obstruction or gangrene; I10 Essential (primary) hypertension; E03.9 Hypothyroidism, unspecified; I48.91 Unspecified atrial fibrillation; J44.9 Chronic obstructive pulmonary disease, unspecified; G47.33 Obstructive sleep apnea (adult) (pediatric); G43.909 Migraine, unspecified, not intractable, without status migrainosus; F41.9 Anxiety disorder, unspecified; F32.A Depression, unspecified; Z88.8 Allergy status to other drugs, medicaments and biological substances; Z91.040 Latex allergy status; Z91.018 Allergy to other foods; Z86.73 Personal history of transient ischemic attack (TIA), and cerebral infarction without residual deficits; Z79.01 Long term (current) use of anticoagulants; Z79.899 Other long term (current) drug therapy
CPT/HCPCS: 27447; 36415; 73560; 80053; 85027; 88300; 96365; 96366; 97110; 97116; 97161; 97165; 97530; 97535; C1776; G0378; J0169; J0690; J1100; J1171; J1885; J2250; J2371; J2405; J2795; J3010; S2900

== ENCOUNTER → 2025-06-03 | Outpatient (CLI) | payer MEDICARE, OTHER ==
[~2025-06-03] MED LIST changes: +ACET-897 PO; +CEFA1TAB PO; +DOCU100C16 PO; +DULO1CAP6 PO; +FERR1TAB8 PO; +LEVO125T4 PO; +MIRA3350 PO; +MUPI2OI NARES; +PERC5TAB12 PO; +POTA-151 PO; +TRAZ-189 PO
== END ==
LOC: M SOG 06:52
PROVIDERS: ATTEND Orthopaedic Surgery
DX: Z96.651 Presence of right artificial knee joint (principal); Z47.1 Aftercare following joint replacement surgery; M25.461 Effusion, right knee; M76.891 Other specified enthesopathies of right lower limb, excluding foot

== ENCOUNTER → 2025-06-24 | Outpatient (CLI) | payer MEDICARE, OTHER | LOC: M RAD 15:56 | PROVIDERS: ATTEND Physician Assistant | DX: R06.02 Shortness of breath (principal); J45.40 Moderate persistent asthma, uncomplicated ==

== ENCOUNTER → 2025-07-01 | Outpatient (CLI) | payer MEDICARE, OTHER | LOC: M SOG 07:31 | PROVIDERS: ATTEND Orthopaedic Surgery | DX: Z47.1 Aftercare following joint replacement surgery (principal); Z96.651 Presence of right artificial knee joint; M25.562 Pain in left knee; M17.0 Bilateral primary osteoarthritis of knee ==

== ENCOUNTER 2025-07-06 03:41 | Emergency (ER) | payer MEDICARE, OTHER ==
[~2025-07-06] VITALS: Ht 154.9 cm; Wt 76.4 kg
[2025-07-06] MEDS ORDERED: MEDR4PAK PO (07:42)
[2025-07-06] MEDS: KETOROLAC 30 MG/ML 1 ML VIAL IM ONE (07:44)
[2025-07-06 07:57] VITALS: BP 155/75; TEMP 98.6; O2SAT 97
== END 2025-07-06 08:08 | disposition home or self-care (01) ==
LOC: M ED 03:41
DX: S83.91XA Sprain of unspecified site of right knee, initial encounter (principal); M25.461 Effusion, right knee; X50.0XXA Overexertion from strenuous movement or load, initial encounter; I10 Essential (primary) hypertension; J44.9 Chronic obstructive pulmonary disease, unspecified; F41.9 Anxiety disorder, unspecified; F32.A Depression, unspecified; Z79.01 Long term (current) use of anticoagulants; Z88.8 Allergy status to other drugs, medicaments and biological substances; Z88.5 Allergy status to narcotic agent; Z91.018 Allergy to other foods; Z91.048 Other nonmedicinal substance allergy status; Z79.52 Long term (current) use of systemic steroids; Z79.899 Other long term (current) drug therapy; Y92.9 Unspecified place or not applicable; Y93.89 Activity, other specified; Y99.9 Unspecified external cause status
CPT/HCPCS: 73564; 96372; 99284; J1885

== ENCOUNTER → 2025-08-01 | Outpatient (REF) | payer MEDICARE, OTHER ==
[~2025-08-01] MED LIST changes: +MEDR4PAK PO
[2025-08-01 13:27] LABS: AMORPHOUS SEDIMENT SMALL (NEGATIVE); APPEARANCE, URINE HAZY (CLEAR); BACTERIA, URINE AUTO NEGATIVE (NEGATIVE); BILIRUBIN, URINE AUTO NEGATIVE (NEGATIVE); BLOOD, URINE BLOOD NEGATIVE (NEGATIVE); CALCIUM OXALATE CRYSTALS MODERATE; GLUCOSE, URINE (UA) AUTO NEGATIVE (NEGATIVE); KETONE, URINE AUTO NEGATIVE (NEGATIVE); LEUKOCYTE ESTERASE, URINE AUTO NEGATIVE (NEGATIVE); MUCUS, URINE SMALL (NEGATIVE); NITRITE, URINE AUTO NEGATIVE (NEGATIVE); PROTEIN, URINE AUTO NEGATIVE (NEGATIVE); RBC, URINE AUTO 0 /HPF (0-3); SPECIFIC GRAVITY URINE AUTO 1.014 (1.002-1.035); SQUAMOUS EPITHELIAL CELL UR AU 0 /HPF (0-6); UROBILINOGEN, URINE AUTO 0.2 mg/dL (0.0-2.0); WBC, URINE AUTO 2 /HPF (0-3)
== END ==
LOC: M SMT 12:44
PROVIDERS: ATTEND Urology
DX: Z96.82 Presence of neurostimulator (principal); R35.0 Frequency of micturition

== ENCOUNTER → 2025-09-07 | Outpatient (REF) | payer MEDICARE, OTHER ==
[~2025-09-07] MED LIST changes: +METF-838 PO
== END ==
LOC: M LAB REF 17:06
PROVIDERS: ATTEND Orthopaedic Surgery
DX: Z01.818 Encounter for other preprocedural examination (principal)

== ENCOUNTER → 2025-09-23 | Outpatient (CLI) | payer MEDICARE, OTHER ==
[~2025-09-23] MED LIST changes: +ALBU8.5H; +BUDE10.22; +CEPH500C PO; +HYDR-3715 PO; +POTA10CA70 PO
== END ==
LOC: M RAD 14:19
PROVIDERS: ATTEND Orthopaedic Surgery
DX: M17.12 Unilateral primary osteoarthritis, left knee (principal)

== ENCOUNTER 2025-09-26 10:32 | Day surgery (SDC) | payer MEDICARE, OTHER ==
[~2025-09-26] VITALS: Ht 154.9 cm; Wt 81.2 kg
[~2025-09-26 10:32] MED LIST changes: -ALBU8.5H; -BUDE10.22; -CEPH500C PO; -HYDR-3715 PO; -POTA10CA70 PO
[2025-09-26] MEDS: LR 1,000 ML IV SCH (11:38)
[2025-09-26] MEDS ORDERED: LIDOCAINE 2% 100 MG/5 ML SDV (FOR ANES.) As Ordered ONE (11:57)
[2025-09-26] MEDS ORDERED: MIDAZOLAM INJ 2 MG/2 ML VIAL As Ordered ONE (12:00)
[2025-09-26] MEDS ORDERED: ONDANSETRON 4MG/2ML VIAL As Ordered ONE (12:01)
[2025-09-26] MEDS ORDERED: dexmedeTOMIDine (4 MCG/ML) 200 MCG/50 ML BTL As Ordered ONE (12:02)
[2025-09-26] MEDS: ceFAZolin SOD 2 GM IV ONCE IV ONE (13:13)
[2025-09-26] MEDS: LIDOCAINE 1% SDV 30 ML VIAL As Ordered ONE (13:17)
[2025-09-26] MEDS ORDERED: HYDR-3715 PO (13:48)
[2025-09-26] MEDS ORDERED: CEPH500C PO (13:48)
[2025-09-26 15:10] VITALS: BP 142/68; TEMP 97.2; O2SAT 98
[2025-09-28] MEDS ORDERED: POTA10CA70 PO (07:33)
[2025-09-28] MEDS ORDERED: ALBU8.5H INH (07:33)
[2025-09-28] MEDS ORDERED: BUDE10.22 (07:33)
== END 2025-09-26 15:17 | disposition home or self-care (01) ==
LOC: M SDC 10:32
PROVIDERS: ATTEND Urology
DX: Z45.42 Encounter for adjustment and management of neurostimulator (principal); N32.81 Overactive bladder; I48.91 Unspecified atrial fibrillation; E11.9 Type 2 diabetes mellitus without complications; I10 Essential (primary) hypertension; E03.9 Hypothyroidism, unspecified; J44.9 Chronic obstructive pulmonary disease, unspecified; K21.9 Gastro-esophageal reflux disease without esophagitis; Z79.01 Long term (current) use of anticoagulants; Z79.890 Hormone replacement therapy; Z79.84 Long term (current) use of oral hypoglycemic drugs; Z79.899 Other long term (current) drug therapy; Z86.73 Personal history of transient ischemic attack (TIA), and cerebral infarction without residual deficits; Z90.710 Acquired absence of both cervix and uterus; Z98.84 Bariatric surgery status; Z88.8 Allergy status to other drugs, medicaments and biological substances; Z91.040 Latex allergy status; Z91.048 Other nonmedicinal substance allergy status
CPT/HCPCS: 64585; 64595; 76000; J0688; J0690; J2250; J2405; J3010

== ENCOUNTER 2025-10-10 10:32 | Observation (INO) | payer MEDICARE, OTHER ==
[~2025-10-10] VITALS: Ht 154.9 cm; Wt 79.9 kg
[2025-10-10] MEDS: ceFAZolin SOD 2 GM IV ONCE IV ONE (06:00)
[~2025-10-10 10:32] MED LIST changes: +ACETAMINOPHEN 1000MG/100ML IV BAG As Ordered ONE; +ALBU8.5H INH; +BUDE10.22; +CEPH500C PO; +HYDR-3715 PO; +LIDOCAINE 2% 100 MG/5 ML SDV (FOR ANES.) As Ordered ONE; +MIDAZOLAM INJ 2 MG/2 ML VIAL As Ordered ONE; +ONDANSETRON 4MG/2ML VIAL As Ordered ONE; +POTA10CA70 PO; +ROCURONIUM BROMIDE 50MG/5ML VIAL As Ordered ONE; +SUGAMMADEX SODIUM 500 MG/5 ML VIAL As Ordered ONE; +dexAMETHasone 4 MG/ML 1 ML VIAL As Ordered ONE; +dexmedeTOMIDine (4 MCG/ML) 200 MCG/50 ML BTL As Ordered ONE
[2025-10-10] MEDS: MIDAZOLAM INJ 2 MG/2 ML VIAL IV PRN (12:04)
[2025-10-10] MEDS: ROPIvacaine 0.5% 30ML VIAL PN ONE (12:07)
[2025-10-10] MEDS: dexAMETHasone 10 MG/1 ML VIAL PRES.FREE PN ONE (12:07)
[2025-10-10] MEDS: LIDOCAINE 1% SDV 5 ML VIAL PN ONE (12:07)
[2025-10-10] MEDS ORDERED: VASOPRESSIN INJ 20UNITS/ML 1ML VIAL As Ordered ONE (12:39)
[2025-10-10] MEDS: TRANEXAMIC ACID 100 MG/ML 10ML VIAL As Ordered ONE (12:45)
[2025-10-10] MEDS ORDERED: PHENYLephrine 500MCG 5ML (100MCG/ML) SYRINGE As Ordered ONE (12:53)
[2025-10-10] MEDS ORDERED: GLYCOPYRROLATE INJ 0.2 MG/ML 2 ML VIAL As Ordered ONE (12:53)
[2025-10-10] MEDS: REK 50ML SYRINGE IA ONE (13:38)
[2025-10-10] MEDS: VANCOMYCIN 1000MG/20ML VIAL As Ordered ONE (13:54)
[2025-10-10] MEDS ORDERED: ALBUTEROL 90 MCG/ACT 8 GM HFA INHALER INH PRN (14:10)
[2025-10-10] MEDS ORDERED: SENNA 8.6 MG TAB PO PRN (14:10)
[2025-10-10] MEDS ORDERED: LR 1,000 ML IV SCH (14:10)
[2025-10-10] MEDS ORDERED: ONDANSETRON 4MG/2ML VIAL IV PRN ×2 (14:30→16:30)
[2025-10-10] MEDS: HYDROMORPHONE HCL 0.5 MG/0.5 ML SYRINGE IV PRN (15:11)
[2025-10-10 16:00] VITALS: BP 163/68; TEMP 97.2; O2SAT 97
[2025-10-10 16:30] VITALS: BP 139/73; TEMP 97.6; O2SAT 98
[2025-10-10 17:00] VITALS: BP 142/65; TEMP 97.7; O2SAT 96
[2025-10-10] MEDS: TRANEXAMIC ACID 100 MG/ML 10ML VIAL IV ONE (17:08)
[2025-10-10] MEDS: LR 1,000 ML IV SCH (17:08)
[2025-10-10 18:00] VITALS: BP 154/67; TEMP 98; O2SAT 92
[2025-10-10 18:07] LABS: PLATELET COUNT, AUTOMATED 239 10^3/uL (150-450)
[2025-10-10] MEDS: ACETAMINOPHEN 325 MG TAB PO SCH (18:09)
[2025-10-10 18:34] LABS: ALT/SGPT 63 U/L (7.0-40); AST/SGOT 60 U/L (<34); CALCIUM LEVEL 8.0 MG/DL (8.3-10.6); CARBON DIOXIDE LEVEL 30 MMOL/L (20-31); CHLORIDE LEVEL 102 MMOL/L (98-107); CREATININE FOR GFR 0.69 MG/DL (0.55-1.30); GLOMERULAR FILTRATION RATE > 90.0 (>45); POTASSIUM SERUM 3.7 MMOL/L (3.5-5.1); SODIUM LEVEL 141 MMOL/L (136-145)
[2025-10-10 19:00] VITALS: BP 119/56; TEMP 98.1; O2SAT 97
[2025-10-10] MEDS ORDERED: POTA10CA70 PO (20:04)
[2025-10-10] MEDS ORDERED: HOME MED LIST COMPLETE! XX SCH (20:05)
[2025-10-10 21:19] VITALS: BP 127/60; TEMP 98.4; O2SAT 97
[2025-10-10] MEDS: traZODone 100 MG TAB PO SCH (21:22)
[2025-10-10] MEDS: ASPIRIN 81 MG ENTERIC TABLET PO SCH (21:23)
[2025-10-10] MEDS: DOCUSATE SODIUM 100 MG CAPSULE PO SCH (21:24)
[2025-10-10] MEDS: LORATADINE 10 MG TAB PO SCH (21:24)
[2025-10-10] MEDS: ceFAZolin SODIUM 2 GM in DEXTROSE 5% (D5W) ADV/MINI-BAG 50 ML IV SCH (21:25)
[2025-10-11 00:03] VITALS: BP 103/51; TEMP 97.6; O2SAT 94
[2025-10-11] MEDS: LEVOTHYROXINE 125 MCG TABLET (0.125 MG) PO SCH (05:44)
[2025-10-11 06:12] VITALS: BP 113/53; TEMP 97.8; O2SAT 98
[2025-10-11 06:43] VITALS: O2SAT 96
[2025-10-11 06:52] LABS: PLATELET COUNT, AUTOMATED 225 10^3/uL (150-450)
[2025-10-11 07:22] LABS: ALT/SGPT 42 U/L (7.0-40); AST/SGOT 33 U/L (<34); CALCIUM LEVEL 8.3 MG/DL (8.3-10.6); CARBON DIOXIDE LEVEL 33 MMOL/L (20-31); CHLORIDE LEVEL 103 MMOL/L (98-107); CREATININE FOR GFR 0.72 MG/DL (0.55-1.30); GLOMERULAR FILTRATION RATE > 90.0 (>45); POTASSIUM SERUM 3.8 MMOL/L (3.5-5.1); SODIUM LEVEL 140 MMOL/L (136-145)
[2025-10-11] MEDS ORDERED: OXYC1TAB23 PO (08:31)
[2025-10-11] MEDS ORDERED: TRAN650T PO (08:31)
[2025-10-11] MEDS ORDERED: ACET32TAB PO (08:31)
[2025-10-11] MEDS ORDERED: CEFD1CAP9 PO (08:31)
[2025-10-11] MEDS: ASCORBIC ACID 500 MG TAB PO SCH (09:12)
[2025-10-11] MEDS: OMEPRAZOLE 20MG CAP PO SCH (09:13)
[2025-10-11 09:14] VITALS: BP 113/53
[2025-10-11] MEDS: FERROUS SULFATE 325 MG TAB PO SCH (09:14)
[2025-10-11] MEDS: FUROSEMIDE 40 MG TAB PO SCH (09:14)
[2025-10-11 10:00] VITALS: BP 121/60; TEMP 97.9; O2SAT 93
[2025-10-11] MEDS: PRIMIDONE 250 MG TAB PO SCH (10:09)
[2025-10-11] MEDS ORDERED: NYST1POW3 TOP (12:14)
[2025-10-11 14:00] VITALS: BP 129/58; TEMP 97.9; O2SAT 95
[2025-10-11] MEDS ORDERED: APIXABAN 5 MG TAB PO SCH (21:00)
[2025-10-12] MEDS ORDERED: FLUZONE HIGH DOSE (65+) 0.5 ML SYRINGE (25-26) IM.IMMUN ONE (09:00)
== END 2025-10-11 14:49 | disposition home or self-care (01) ==
LOC: M SDC 10:32 → M MS5PR 17:40
PROVIDERS: ADMIT Student in an Organized Health Care Education/Training Program; ATTEND Student in an Organized Health Care Education/Training Program
DX: M17.12 Unilateral primary osteoarthritis, left knee (principal); I48.91 Unspecified atrial fibrillation; E03.9 Hypothyroidism, unspecified; K44.9 Diaphragmatic hernia without obstruction or gangrene; K59.00 Constipation, unspecified; D64.9 Anemia, unspecified; R09.02 Hypoxemia; F41.9 Anxiety disorder, unspecified; F32.A Depression, unspecified; G43.909 Migraine, unspecified, not intractable, without status migrainosus; G25.0 Essential tremor; I10 Essential (primary) hypertension; K21.9 Gastro-esophageal reflux disease without esophagitis; Z96.651 Presence of right artificial knee joint; Z90.79 Acquired absence of other genital organ(s); Z79.01 Long term (current) use of anticoagulants; Z79.890 Hormone replacement therapy; Z79.899 Other long term (current) drug therapy; Z86.73 Personal history of transient ischemic attack (TIA), and cerebral infarction without residual deficits; Z91.018 Allergy to other foods; Z91.040 Latex allergy status; Z88.8 Allergy status to other drugs, medicaments and biological substances
CPT/HCPCS: 27447; 36415; 73560; 80053; 85027; 88300; 96365; 96366; 97110; 97161; 97165; 97530; C1776; G0378; J0131; J0165; J0688; J1100; J1171; J1596; J1885; J2250; J2371; J2405; J2598; J2765; J2795; J3010; S2900